=== PATIENT | male | born 1965 | race Caucasian/White ===

== ENCOUNTER → 2022-03-01 18:35 | Outpatient (CLI) | payer SELFPAY ==
--- NOTE | 2022-03-01 | DI.RAD_ITS ---
Exam(s) XR ELBOW LT COMPLETE EXAM: XR ELBOW LT COMPLETE CLINICAL HISTORY: BURSITIS, SWELLING AND PAIN - M70.32. TECHNIQUE: 2D digital imaging was performed. COMPARISON: CR RIGHT ELBOW COMPLETE from 12/13/2016 FINDINGS: 3 views There is no evidence of acute fracture nor obvious joint effusion. Radial head and capitellum appear unremarkable. Calcification noted at the insertional aspect of the quadriceps on the posterior aspe ct of the olecranon is again noted but presently is united (previously appeared fractured). However, there is some soft tissue swelling overlying this region in the olecranon bursa. In addition, there are findings at the level of the medial epicondyle consistent with epicondylitis, as previously pres ent. No concerning osseous lesions. There are no calcified loose intra-articular bodies. IMPRESSION: 1. Calcific densities at and adjacent to the outer aspect of the medial distal humeral epicondyle con sistent with epicondylitis. 2. Soft tissue swelling posteriorly at the left non bursa, this overlying what appears to be a healed fracture at the calcific density where the triceps tendon attach is to the posterior olecranon. DATA REPOSITORY: RADIATION DOSE DELIVERED:
== END ==
PROVIDERS: PCP Family Medicine; Visit Provider Nurse Practitioner Family
DX: M25.522 Pain in left elbow (principal); M70.32 Other bursitis of elbow, left elbow; M77.02 Medial epicondylitis, left elbow; M79.89 Other specified soft tissue disorders
CPT/HCPCS: 73080

== ENCOUNTER → 2023-08-21 00:33 | Outpatient (CLI) | payer OTHER, SELFPAY ==
--- NOTE | 2023-08-21 07:30 | DI.MRI_ITS ---
Exam(s) MR UPPER JOINT LT WO EXAM: MR UPPER JOINT LT WO CLINICAL HISTORY: PAIN,MEDIAL EPICONDYLITIS LT ELBOW, M77.02. TECHNIQUE: Multiplanar multisequence MRI was performed. COMPARISON: CR XR ELBOW LT COMPLETE from 03/01/2022 FINDINGS: BONES: There is no fracture or contusion pattern. JOINTS: The articular cartilage is unremarkable. There is a small amount of fluid in the joint space . TENDONS: Common flexors: There is very mild hyperintense signal seen in the common flexor tendon. Common extensors: Mild hyperintense signal is seen within the common extensor tendon. Biceps: Unremarkable. Triceps: Unremarkable. MUSCLES: Unremarkable. MEDIAN NERVE: Unremarkable on this noncontrast examination. ULNAR NERVE: Unremarkable on this noncontrast examination. SOFT TISSUES: Unremarkable. LIGAMENTS: Ulnar collateral: Unremarkable. Radial collateral: There is attenuation of the radial collateral ligament suspicious for tear. OTHER: IMPRESSION: 1. Findings suspicious for partial tear of the radial collateral ligament. 2. Hyperintense signal seen in the common extensor tendon suspicious for partial tear versus tendinos is. 3. Tendinosis of the common flexor tendon. 4. Small amount of fluid in the joint space particularly laterally. DATA REPOSITORY:
== END ==
PROVIDERS: PCP Family Medicine; Visit Provider Student in an Organized Health Care Education/Training Program
DX: M77.02 Medial epicondylitis, left elbow (principal)
CPT/HCPCS: 73221

== ENCOUNTER 2023-12-28 17:36 | Observation (INO) | payer OTHER, SELFPAY ==
[2023-12-28] VITALS (8 sets, daily range): BP systolic 111–142; BP diastolic 68–101; PULSE 59–85; RESP 15–19; TEMP 35.9; O2SAT 95–99
--- NOTE | 2023-12-28 17:45 | DI.RAD_ITS ---
Exam(s) XR FEMUR RT EXAM: XR FEMUR RT CLINICAL HISTORY: R femur pain. TECHNIQUE: 2D digital imaging was performed. AP and lateral views. COMPARISON: No exams were available for comparison FINDINGS: BONES: No acute fracture is present. No bony destructive lesion is seen. JOINTS: Degenerative changes are noted at the knee. The hip joint space is maintained. Alignment of the knee and hip unremarkable. SOFT TISSUE: Normal. IMPRESSION: No acute abnormality. DATA REPOSITORY: RADIATION DOSE DELIVERED:
--- NOTE | 2023-12-28 17:45 | DI.RAD_ITS ---
Exam(s) XR ANKLE LT COMPLETE EXAM: XR ANKLE LT COMPLETE CLINICAL HISTORY: fall from height, L ankle pain TECHNIQUE: 2D digital imaging was performed. Three views. COMPARISON: CR RIGHT ANKLE COMPLETE from 10/10/2013 CR,XR XR FEMUR RT from 12/28/2023 FINDINGS: BONES: A nondisplaced fractures seen through the calcaneus on the lateral view. No bony destructive lesion is seen. JOINTS:The ankle mortise is normally aligned. SOFT TISSUE: Swelling. IMPRESSION: Nondisplaced calcaneal fracture. DATA REPOSITORY: RADIATION DOSE DELIVERED:
--- NOTE | 2023-12-28 17:45 | RT.EKG_ITS ---
APPROVED REPORT Exam: Resting ECG Reason for Exam: fall from height, mid-back pain Patient Location: E HR:90 bpm ECG Measurements Heart Rate 90 AXIS GA 181 P 75 QRSd 87 QRS 68 QT 373 T 57 QTc 456 Conclusion Sinus rhythm...normal P axis, V-rate 60- 99 Physician: no stemi
--- NOTE | 2023-12-28 17:45 | DI.CT_ITS ---
Exam(s) CT CHEST/ABD/PEL W CT THORACIC LUMBAR SPINE REC EXAM: CT CHEST/ABD/PEL W CLINICAL HISTORY: fall from roof ; 14 feet. TECHNIQUE: Imaging Protocol: Axial computed tomography images with coronal and sagittal reformatted images were created and reviewed CONTRAST MATERIAL: Intravenous: Omnipaque 350 Contrast volume:100 ml Oral: no COMPARISON: CT CHEST ABD PELVIS WITH CONTRAST from 11/25/[address] THORACIC LUMBAR SPINE REC from 12/28/2023 FINDINGS: CHEST: Tracheobronchial tree: Patent where visualized. Pulmonary parenchyma: No consolidation or dominant measurable mass. Pleura: No effusion or pneumothorax. Lymph nodes: Within normal limits. Aorta: Thoracic portion non-dilated. Heart: No pericardial effusion. Bones: Old rib fractures. No lytic or blastic lesions.No compression fractures. Degenerative change s in the spine. Prominent endplate osteophytes. Soft tissues: Unremarkable. ABDOMEN and PELVIS: Liver: Fatty infiltration. No measurable mass. Gallbladder and biliary tract: No evidence of stones or wall thickening. No biliary dilatation. Pancreas: Normal density, no abnormal calcifications or inflammatory process. Spleen: Normal. Kidneys: Normal size, contour and axis. No radiodense stones. No obstructive uropathy. No suspicious masses seen. No visible laceration or contusion. Adrenal glands: No masses seen. Aorta: Abdominal portion non-dilated. Lymph nodes: Within normal limits. Soft tissues: Unremarkable. A small amount of hemorrhage is seen in the right retroperitoneum at the level of the upper to mid pe lvis. Bladder: Unremarkable. Bowel: No obstruction or bowel wall thickening. Peritoneal cavity: No ascites. No focal collection. No mesenteric inflammatory response. Bones: Prominent endplate osteophytes. There are nondisplaced fractures through the right sided oste ophytes at the L4 and L5 level. Fractures also seen extending through the anterior osteophytes at L5 . Degenerative disc changes greatest at L5-S1. No surrounding hematoma. Degenerative changes of becky th hips. Reproductive organs: Within normal limits. IMPRESSION: No acute abnormality in the chest. Small amount of right-sided retroperitoneal hemorrhage. No renal laceration or contusion is identifi ed. Fractures through the right-sided osteophytes at L4 and L5. Additional fracture through the anterior portions of the osteophytes at L5. Findings called to ER provider. RADIATION DOSE DELIVERED: Total DLP DATA REPOSITORY: All CT scans at this facility are submitted to the National Radiology Data Registry (NRDR) Dose Index Registry (DIR) with the [employer] ([employer]). RADIATION OPTIMIZATION: All CT scans at this facility use at least one of these dose optimization te chniques: automated exposure control; mA and/or kV adjustment per patient size (includes targeted exa ms where dose is matched to clinical indication); or iterative reconstruction.
--- NOTE | 2023-12-28 17:45 | DI.RAD_ITS ---
Exam(s) XR ELBOW RT COMPLETE EXAM: XR ELBOW RT COMPLETE CLINICAL HISTORY: R elbow pain, fall from height. TECHNIQUE: 2D digital imaging was performed. Three views. COMPARISON: MR MR UPPER JOINT LT WO from 08/21/2023 FINDINGS: BONES: No acute fracture is present. No bony destructive lesion is seen. Prominent spur at the olecr anon. JOINTS: The elbow is normally aligned. No joint effusion is seen. Joint space loose bodies noted. SOFT TISSUE: IV noted. IMPRESSION: No acute abnormality. DATA REPOSITORY: RADIATION DOSE DELIVERED:
--- NOTE | 2023-12-28 17:45 | DI.CT_ITS ---
Exam(s) CT HEAD CERVICAL SPINE WO EXAM: CT HEAD CERVICAL SPINE WO CLINICAL HISTORY: fall from roof, 14 feet. TECHNIQUE: Imaging Protocol: Axial computed tomography images with coronal and sagittal reformatted images were created and reviewed COMPARISON: CT HEAD AND CSPINE W/O CONTRAST from 11/25/2017 FINDINGS: Head CT Ventricles and Extra axial spaces: Normal in size and morphology for the patient's age. Hemorrhage: None. Cerebral parenchyma: No evidence of mass or acute infarct. Midline shift: None. Brainstem/Cerebellum: Normal. Calvarium: Normal. Visualized Paranasal sinuses/Mastoids: Mucous retention at the floors of the maxillary sinuses. Some mucous retention within ethmoid sinuses. Soft tissues: Unremarkable. Cervical Spine CT BONES: Vertebral body heights are maintained. Alignment is normal. There is no evidence of acute frac ture. Degenerative disc changes and facet degenerative changes are seen . SOFT TISSUES: No paraspinal hematoma. The airway appears intact. No pneumothorax is seen at the lung apices. IMPRESSION: Head CT: No acute abnormality. C-spine CT: Degenerative changes, no acute abnormality. RADIATION DOSE DELIVERED: Total DLP DATA REPOSITORY: All CT scans at this facility are submitted to the National Radiology Data Registry (NRDR) Dose Index Registry (DIR) with the [employer] ([employer]). RADIATION OPTIMIZATION: All CT scans at this facility use at least one of these dose optimization te chniques: automated exposure control; mA and/or kV adjustment per patient size (includes targeted exa ms where dose is matched to clinical indication); or iterative reconstruction.
--- NOTE | 2023-12-28 18:00 | ED.GENADUL_ITS ---
Discharge Plan Disposition Patient Disposition: Admit to [facility] Condition: Stable Discharge Details Clinical Impression: Retroperitoneal hemorrhage, Fracture of left calcaneus Admit Date/Time: 12/28/23 21:05 Admit Provider: Alex Alcala Attending Provider: Alex Alcala Primary Care Provider: Peggy Rivero V ED Provider: Alex Stoddard [facility] General Date/Time Provider Initiated Documentation: 12/28/23 17:49 . HPI Narrative: 58 year-old male presents to ED today by POV/wheelchair with a chief complaint of fall from 14 foot roof while working- landing on L ankle, L hip, and butt/back with onset just prior to arrival. Quality described as severe back pain, some nausea, L ankle pain, R femur pain, R elbow pain, no radiation to headstrike, LOC, endorses mild neck pain, denies active bleeding, denies abdominal pain, denies numbness/tingling. Severity is described as 8/10. Palliating factors include nothing specific. Provoking factors include nothing specific. Patient not anticoagulated. Related Data Home Medications Medication Instructions Recorded Confirmed Unknown [No Known Home Meds] 07/10/23 12/28/23 Allergies Allergy/AdvReac Type Severity Reaction Status Date / Time No Known Allergies Allergy Unverified 12/28/23 17:47 General Stated Complaint: Trauma MARIBEL: 2 Review of Systems All systems reviewed & are unremarkable except as noted in HPI and below Exam Narrative Exam Narrative: GENERAL APPEARANCE: Well-nourished, non-toxic, awake and alert, atraumatic, no a cute distress. SKIN: Warm, pink, dry, intact, without rashes/lesions/ulcerations. HEAD: Normocephalic, atraumatic- no Marcos's sign, no periorbital ecchymosis, no scalp hematoma, normal hair distribution for gender/age. EYES: Pupils PERRLA, EOMs intact without nystagmus, normal conjunctiva, no exudates on lids/lashes. ENT: Nares patent, no circumoral cyanosis, no facial swelling, orbits stable NECK: Supple, trachea midline, painless cervical ROM, mild TTP midline cervical C-spine, no crepitus/step-offs. LUNGS/CHEST: Lungs CTA bilaterally- no rhonchi/rales/wheezes diffusely, non- labored respirations, normal A/P diameter, symmetrical expansion, no chest wall deformity, no crepitus, no flail segment, no paradoxical motion HEART (CV/PV): Regular rate and rhythm without murmur, no peripheral edema, no JVD. ABDOMEN: Soft, non-distended, no guarding, no tenderness, no ecchymosis, no Rovsing's. MSK: Normal ROM, no swelling/deformity to bilateral UEs or LEs, moving all extremities without weakness, no cyanosis, spine midline without tenderness, normal curvature. Diffuse vertebral tenderness in the thoracic and lumbar vertebrae without overt crepitus or step-offs, no dependent edema or ecchymosis, hips stable without crepitus, tenderness and ecchymosis to the left ankle, mild tenderness over the stable right femur midshaft, very minor abrasion without crepitus and full range of motion to the right elbow. NEURO: Mental Status AAOx4 - alert to person, place, time, events No facial droop, no forehead involvement. Motor: No focal weakness - strength 5/5 in bilateral UEs and LEs, proximal and distal, symmetric. Sensory: sensation intact to light touch globally. Gait normal: patient ambulated without ataxia into ED room. PSYCH: euthymic, cooperative, pleasant, appropriate speech Course Vital Signs Vital signs: Vital Signs Pulse 83 12/28/23 17:41 Respiratory Rate 18 12/28/23 17:41 Blood Pressure 142/101 H 12/28/23 17:41 Pulse Oximetry 99 12/28/23 17:41 Pulse 83 12/28/23 17:41 Respiratory Rate 18 12/28/23 17:41 Respiratory Effort Normal 12/28/23 17:49 Respiratory Depth Normal 12/28/23 17:49 Respiratory Pattern Irregular 12/28/23 17:49 Blood Pressure 142/101 H 12/28/23 17:41 Pulse Oximetry 99 12/28/23 17:41 Pain Level 9 12/28/23 17:49 Medical Decision Making This dictation utilizes [id number] dictation software and may contain unedited grammatical errors. 58 y/o M presents to ED today with a chief complaint of fall from 14 foot roof, pain to back, neck, L ankle, R elbow, R femur, denies abdominal pain, denies headstrike, denies numbness/tingling, denies cough/shortness of breath, denies rib pain. Patients' medical history: Alcoholism, history of smoking. 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 Pertinent exam findings / vital signs include chest wall stable without crepitus, lungs CTA, mild tenderness to the neck without crepitus, no signs of head injury on exam, neurovascularly intact in bilateral lower extremities, pelvis stable, benign abdomen, left ankle tenderness and ecchymosis. Differential / pathologies of concern include fracture, internal bleeding/solid organ injury, hematoma/hemorrhage, intracranial bleeding, spinal cord or column injury. Diagnostic studies of: -Eisenberg-Scan - (CT Head, C-T-L Spine, Chest/Abd/Pelvis), XR L Ankle, XR R Femur, XR R Elbow, CBC, CMP, Type & Screen, PT/PTT, Lactate, Lipase, UA. -CBC WBCs 13.18, HgB 13.7 -Lactate 2.9 initially -Coags WNL -serial trop negative -EKG NSR, no signs of ischemia -lipase WNL -CTs show no vertebral injury, no solid organ injury, a small R sided retroperitoneal hemorrhage without ureter involvement, non-displaced fx to L calcaneus, no fracture at hips, femur, elbow Interventions of: -500mL bolus IVF, 1g APAP, 15mg ketorlac, 4mg zofran x2 q3hr, 1mg hydromorphone- consult Trauma Surgery Dr. Alcala. ED Course/Assessment/Plan: 58-year-old male suffered a 14 foot fall from roof, diagnosis of a small right- sided retroperitoneal hemorrhage that does not appear to involve solid organ injury or ureter involvement, he has a fracture of the calcaneus which is nondisplaced. I consulted with trauma surgery Dr. Alcala who recommends observation. Patient stable, nausea and some vomiting in department likely due to hydromorphone. I consulted with orthopedics Dr. King who recommends a posterior splint which I placed him in with extensive padding around the heel and elevated the leg and recommended nonweightbearing whatsoever. Patient likely needs repeat imaging in the morning and is admitted to [facility] around 2200 hrs. Disposition of Retroperitoneal Hemorrhage, Fracture of Left Calcaneus. Patient verbalized understanding of the plan and return to ED criteria and engaged in shared decision making. Medical Records Medical records reviewed: Yes I reviewed the patient's medical records. Imaging Data Radiologic Study: Attestation: I personally reviewed and interpreted this imaging study as follows: Imaging: CT Scan Radiologist's impression: Exam: CT Head Without Contrast Exam date and time: 12/28/2023 6:50 PM Age: 58 years old Clinical indication: Pain and injury or trauma; Fall; Blunt trauma (contusions or hematomas); Neck pain; Patient HX: Neck, back pain, nausea; Additional info: Fall from roof, 14 feet TECHNIQUE: Imaging protocol: Computed tomography of the head without contrast. COMPARISON: CT HEAD AND CSPINE W/O CONTRAST 11/25/2017 1:40 PM FINDINGS: Brain: No intracranial hemorrhage or extra-axial fluid collection. No evidence of mass effect or midline shift. Vergara-white matter differentiation is intact. Cerebral ventricles: No ventriculomegaly. Paranasal sinuses: Moderate mucosal thickening of the maxillary sinuses. Mastoid air cells: Unremarkable. Bones/joints: No acute calvarial fracture. Soft tissues: Scalp soft tissues are unremarkable. IMPRESSION: No acute intracranial pathology. PROCEDURE INFORMATION: Exam: CT Cervical Spine Without Contrast Exam date and time: 12/28/2023 6:50 PM Age: 58 years old Clinical indication: Pain and injury or trauma; Fall; Blunt trauma (contusions or hematomas); Neck pain; Patient HX: Neck, back pain, nausea; Additional info: Fall from roof, 14 feet TECHNIQUE: Imaging protocol: Computed tomography of the cervical spine without contrast. COMPARISON: CT HEAD AND CSPINE W/O CONTRAST 11/25/2017 1:40 PM FINDINGS: Bones/joints: Vertebral body heights are maintained. No locked or perched facets. Multilevel facet arthropathy. No acute cervical spine fracture. The dens is intact. Atlanto-axial intervals are normal. Multilevel degenerative changes with intervertebral disc height loss and osteophyte formation, with multilevel areas of mild canal stenosis. Lungs: Lung apices are clear. Soft tissues: Unremarkable. IMPRESSION: No acute cervical spine fracture. Dictated and Authenticated by: Kris Campos MD. Ordering:BERKLEY Johnson MD Radiologic Study #2: Attestation: I personally reviewed and interpreted this imaging study as follows: Imaging: CT Scan Radiologist's impression: Exam(s) Addendum created by Esthela Cerna MD on 12/28/2023 7:47:39 PM EDT: I discussed case findings with ALEX STODDARD 12/28/2023 7:46 PM EDT. Initial report created on 12/28/2023 7:44:00 PM EDT: PROCEDURE INFORMATION: Exam: CT Chest With Contrast; Diagnostic Exam date and time: 12/28/2023 6:58 PM Age: 58 years old Clinical indication: Injury or trauma; Fall; Bleeding/hemorrhage; Lower; Blunt trauma (contusions or hematomas); Injury date: Today; Injury details: Mid back and rib pain; Additional info: Fall from roof, 14 feet TECHNIQUE: Imaging protocol: Diagnostic computed tomography of the chest with contrast. Contrast material: OMNIPAQUE 350; Contrast volume: 100 ml; Contrast route: INTRAVENOUS (IV); COMPARISON: CT CHEST ABD PELVIS WITH CONTRAST 11/25/2017 1:52 PM FINDINGS: Lungs: There is debris in the right mainstem bronchus. Pleural spaces: Unremarkable. No pneumothorax. No pleural effusion. Heart: Unremarkable. No cardiomegaly. No pericardial effusion. Lymph nodes: Unremarkable. No enlarged lymph nodes. Vasculature: Unremarkable. No aortic aneurysm. Bones/joints: Unremarkable. No acute fracture. Soft tissues: Unremarkable. IMPRESSION: No significant, acute posttraumatic abnormality noted in the chest. PROCEDURE INFORMATION: Exam: CT Abdomen And Pelvis With Contrast Exam date and time: 12/28/2023 6:58 PM Age: 58 years old Clinical indication: Injury or trauma; Fall; Bleeding/hemorrhage; Lower; Blunt trauma (contusions or hematomas); Injury date: Today; Injury details: Mid back and rib pain; Additional info: Fall from roof, 14 feet TECHNIQUE: Imaging protocol: Computed tomography of the abdomen and pelvis with contrast. Contrast material: OMNIPAQUE 350; Contrast volume: 100 ml; Contrast route: INTRAVENOUS (IV); COMPARISON: CT CHEST ABD PELVIS WITH CONTRAST 11/25/2017 1:52 PM FINDINGS: Liver: Fatty, enlarged liver. Gallbladder and bile ducts: Normal. No calcified stones. No ductal dilation. Pancreas: Normal. No ductal dilation. Spleen: Splenic calcifications consistent with old granulomatous change. Adrenal glands: Normal. No mass. Kidneys and ureters: See Retroperitoneal space finding. Stomach and bowel: Unremarkable. No obstruction. No mucosal thickening. Appendix: No evidence of appendicitis. Intraperitoneal space: Unremarkable. No free air. No significant fluid collection. Retroperitoneal space: There is abnormal attenuation noted in the right retroperitoneum, posterior pararenal space below the renal level series 8, images [id number], presumed hemorrhage. The area of involvement measures no greater than 5 mm in thickness and approximately 4 cm in length. Vasculature: Unremarkable. No abdominal aortic aneurysm. Lymph nodes: Unremarkable. No enlarged lymph nodes. Urinary bladder: Unremarkable as visualized. Reproductive: Unremarkable as visualized. Bones/joints: Mild to moderate lumbar spondylosis. No evidence for fracture. Soft tissues: Unremarkable. IMPRESSION: Presumed minimal right retroperitoneal hemorrhage. No definite solid organ injury. Pending the patient's clinical course, repeat imaging in 24 hours may be helpful to characterize degree of hemorrhage. Dictated and Authenticated by: Esthela Cerna MD. Ordering:BERKLEY Johnson MD Radiologic Study #3: Attestation: I personally reviewed and interpreted this imaging study as follows: Imaging: X-Ray Radiologist's impression: Exam: XR Right Femur Exam date and time: 12/28/2023 7:09 PM Age: 58 years old Clinical indication: Pain and injury or trauma; Fall; Blunt trauma; Thigh or upper leg; Right; Additional info: Fall from roof, 14 feet TECHNIQUE: Imaging protocol: Radiologic exam of the right femur. Views: 2 views. COMPARISON: CT CHEST/ABD/PEL W 12/28/2023 6:58 PM FINDINGS: Bones/joints: Unremarkable. No acute fracture. Soft tissues: Unremarkable. IMPRESSION: No evidence for fracture. Dictated and Authenticated by: Esthela Cerna MD. Ordering:BERKLEY Johnson MD Radiologic Study #4: Attestation: I personally reviewed and interpreted this imaging study as follows: Imaging: X-Ray Radiologist's impression: Exam: XR Left Ankle Exam date and time: 12/28/2023 7:11 PM Age: 58 years old Clinical indication: Pain and injury or trauma; Fall; Blunt trauma; Ankle; Left; Additional info: Fall from roof, 14 feet TECHNIQUE: Imaging protocol: Radiologic exam of the left ankle. Views: 3 or more views. COMPARISON: No relevant prior studies available. FINDINGS: Bones/joints: There is a nondisplaced calcaneal fracture. The medial and lateral malleoli appear intact. There may be a small ankle joint effusion. Soft tissues: Normal. IMPRESSION: Nondisplaced calcaneal fracture. Dictated and Authenticated by: Esthela Cerna MD. Ordering:BERKLEY Johnson MD Radiologic Study #5: Attestation: I personally reviewed and interpreted this imaging study as follows: Imaging: X-Ray Radiologist's impression: Exam: XR Right Elbow Exam date and time: 12/28/2023 7:21 PM Age: 58 years old Clinical indication: Pain and injury or trauma; Fall; Blunt trauma (contusions or hematomas); Elbow; Right; Additional info: Fall from roof, 14 feet TECHNIQUE: Imaging protocol: Radiologic exam of the right elbow. Views: 3 or more views. COMPARISON: No relevant prior studies available. FINDINGS: Bones/joints: Hypertrophic spurring noted of the olecranon process. There may be small adjacent loose bodies noted at the lateral epicondylar level. No fracture. No evidence for joint effusion. Soft tissues: Normal. IMPRESSION: No evidence for fracture. Dictated and Authenticated by: Esthela Cerna MD. Ordering:BERKLEY Johnson MD Lab Data Lab results reviewed: Yes I reviewed the patient's lab results. Labs: Laboratory Tests Range/Units 12/28/23 18:04 WBC (4.4-10.8) 10^3/uL 13.18 H RBC (4.36-5.78) 10^6/uL 4.18 L Hgb (13.5-17.5) g/dL 13.7 Hct (40.0-50.0) % 38.8 L MCV (80-95) fL 93 MCH (27.0-33.0) pg 32.8 MCHC (32.0-36.0) % 35.3 RDW (11.8-14.1) % 14.6 H Plt Count (130-400) 10^3/uL 244 MPV (8.0-11.0) fL 9.5 Immature Gran % 0.5 Neutrophils % 88.0 Lymphocytes % 4.9 Monocytes % 6.0 Eosinophils % 0.2 Basophils % 0.4 Nucleated RBC % (0.0-0.3) % 0.0 Absolute Neutrophils (1.2-6.7) 10^3/uL 11.60 H Absolute Lymphocytes (1.2-3.4) 10^3/uL 0.65 L Absolute Monocytes (0.1-0.8) 10^3/uL 0.79 Absolute Eosinophils (0.0-0.7) 10^3/uL 0.03 Absolute Basophils (0.0-0.2) 10^3/uL 0.05 PT (9.1-11.1) sec 10.4 INR (0.9-1.1) 1.0 APTT (23.6-32.8) sec 24.6 VBG Lactate (0.6-1.4) mmol/L 2.3 H* Sodium (136-145) mmol/L 136 Potassium (3.5-5.1) mmol/L 3.7 Chloride (98-107) mmol/L 99 Carbon Dioxide (21.0-32.0) mmol/L 22.7 Anion Gap (3-11) mmol/L 14.3 H BUN (7-18) mg/dL 15 Creatinine (0.70-1.30) mg/dL 1.1 Est GFR (CKD-EPI 2020) (mL/min/1.73m2) 78.30 Glucose (74-106) mg/dL 99 Calcium (8.5-10.1) mg/dL 8.4 L Magnesium (1.8-2.4) mg/dL 2.0 Total Bilirubin (0.2-1.0) mg/dL 0.4 AST (15-37) U/L 34 ALT (16-63) U/L 28 Alkaline Phosphatase (46-116) U/L 107 Troponin I (< or =60) ng/L < 50 Total Protein (6.4-8.2) g/dL 7.8 Albumin (3.4-5.0) g/dL 3.4 Lipase (16-77) U/L 30 Quality:SDOH Health Related Social Needs: No Data to Display PFSH All Active Problems Fracture of left calcaneus (Acute 12/28/23) Retroperitoneal hemorrhage (Acute) Cubital tunnel syndrome on left (Acute) Medial epicondylitis, left elbow (Acute) Olecranon bursitis of left elbow (Acute) Left lateral epicondylitis (Acute) Smoker (Acute) Alcoholism (Acute) Anxiety disorder (Acute) Systolic murmur (Acute) Medical History History of closed head injury Eczema ADD (attention deficit disorder) Low back pain Gout Social History Smoking/Tobacco Use Status: Current every day Tobacco Type: cigarettes Smoking risk assessment performed?: Yes Alcohol Intake: current Alcohol Intake frequency: 3 or more drinks per day Alcohol type: beer Drug use: Never Substance use type: does not use Current gender identity: male Do you feel safe in your relationship?: No PAWSS Have you Been Recently Intoxicated or Drunk Within the Last 30 days?: No Have you Ever Experienced Previous Episodes of Alcohol Withdrawal?: No Have you ever Experienced Withdrawal Seizures?: No Have you ever Experienced Delirium Tremens(DT)s?: No Have you ever undergone Alcohol Rehabilitation Treatment (i.e, inpt ot outpatient treatment programs)?: Yes Have you ever Experienced Blackouts?: No Have you ever Combined Alcohol with other Downers within the last 90 days?: No Have you ever Combined Alcohol with any other Substance of Abuse during the last 90 days?: No Result: 1
[2023-12-28 18:15] LABS: Abs Immature Grans 0.07 10^3/uL (0.0-0.06); Absolute Basophil Count 0.05 10^3/uL (0.0-0.2); Absolute Lymphocyte Count 0.65 10^3/uL (1.2-3.4); Absolute Monocyte Count 0.79 10^3/uL (0.1-0.8); Basophils % 0.4; Eosinophils % 0.2; HCT 38.8 % (40.0-50.0); HGB 13.7 g/dL (13.5-17.5); Immature Grans % 0.5; Lymphocytes % 4.9; MCH 32.8 pg (27.0-33.0); MCHC 35.3 % (32.0-36.0); MCV 93 fL (80-95); MPV 9.5 fL (8.0-11.0); Platelet Count 244 10^3/uL (130-400); RBC 4.18 10^6/uL (4.36-5.78); RDW 14.6 % (11.8-14.1); RDW-SD 50.1 fL; WBC 13.18 10^3/uL (4.4-10.8)
[2023-12-28 18:17] LABS: Lactate 2.3 mmol/L (0.6-1.4)
[2023-12-28 18:22] LABS: Absolute Eosinophil Count 0.03 10^3/uL (0.0-0.7)
[2023-12-28] MEDS: ACETAMINOPHEN 1,000 MG/100 ML BTL 400 MG IVPB (18:35)
[2023-12-28] MEDS: fentaNYL 100 MCG/2 ML VIAL 50 MCG IVP (18:36)
[2023-12-28] MEDS: Ketorolac 15 MG/ML VIAL IVP (18:36)
[2023-12-28 18:37] LABS: PTT Activated 24.6 sec (23.6-32.8); Prothrombin Time 10.4 sec (9.1-11.1)
[2023-12-28] MEDS: Normal Saline 500 ML IV (18:37)
[2023-12-28] MEDS: Normal Saline Flush 10 ML SYR IVP (18:46)
[2023-12-28] MEDS: Normal Saline - Diluent 50 ML VIAL IJ (18:46)
[2023-12-28 18:47] LABS: ALT 28 U/L (16-63); AST 34 U/L (15-37); Albumin 3.4 g/dL (3.4-5.0); Alkaline Phosphatase 107 U/L (46-116); Anion Gap 14.3 mmol/L (3-11); BUN 15 mg/dL (7-18); Bilirubin, Total 0.4 mg/dL (0.2-1.0); CO2 22.7 mmol/L (21.0-32.0); CREATININE 1.1 mg/dL (0.70-1.30); Calcium 8.4 mg/dL (8.5-10.1); Chloride 99 mmol/L (98-107); Glucose 99 mg/dL (74-106); Lipase 30 U/L (16-77); Potassium 3.7 mmol/L (3.5-5.1); Sodium 136 mmol/L (136-145); Total Protein 7.8 g/dL (6.4-8.2); Troponin I < 50 ng/L (< or =60)
[2023-12-28] MEDS: Omnipaque 350 MG/ML 100 ML BTL IJ (18:47)
--- NOTE | 2023-12-28 19:11 | DI.VRAD_ITS ---
PROCEDURE INFORMATION: Exam: CT Head Without Contrast Exam date and time: 12/28/2023 6:50 PM Age: 58 years old Clinical indication: Pain and injury or trauma; Fall; Blunt trauma (contusions or hematomas); Neck pain; Patient HX: Neck, back pain, nausea; Additional info: Fall from roof, 14 feet TECHNIQUE: Imaging protocol: Computed tomography of the head without contrast. COMPARISON: CT HEAD AND CSPINE W/O CONTRAST 11/25/2017 1:40 PM FINDINGS: Brain: No intracranial hemorrhage or extra-axial fluid collection. No evidence of mass effect or midline shift. Vergara-white matter differentiation is intact. Cerebral ventricles: No ventriculomegaly. Paranasal sinuses: Moderate mucosal thickening of the maxillary sinuses. Mastoid air cells: Unremarkable. Bones/joints: No acute calvarial fracture. Soft tissues: Scalp soft tissues are unremarkable. IMPRESSION: No acute intracranial pathology. PROCEDURE INFORMATION: Exam: CT Cervical Spine Without Contrast Exam date and time: 12/28/2023 6:50 PM Age: 58 years old Clinical indication: Pain and injury or trauma; Fall; Blunt trauma (contusions or hematomas); Neck pain; Patient HX: Neck, back pain, nausea; Additional info: Fall from roof, 14 feet TECHNIQUE: Imaging protocol: Computed tomography of the cervical spine without contrast. COMPARISON: CT HEAD AND CSPINE W/O CONTRAST 11/25/2017 1:40 PM FINDINGS: Bones/joints: Vertebral body heights are maintained. No locked or perched facets. Multilevel facet arthropathy. No acute cervical spine fracture. The dens is intact. Atlanto-axial intervals are normal. Multilevel degenerative changes with intervertebral disc height loss and osteophyte formation, with multilevel areas of mild canal stenosis. Lungs: Lung apices are clear. Soft tissues: Unremarkable. IMPRESSION: No acute cervical spine fracture. Dictated and Authenticated by: Kris Campos MD. Ordering:BERKLEY Johnson MD
--- NOTE | 2023-12-28 19:44 | DI.VRAD_ITS ---
Addendum created by Esthela Cerna MD on 12/28/2023 7:47:39 PM EDT: I discussed case findings with ZIGGY STODDARD 12/28/2023 7:46 PM EDT. Initial report created on 12/28/2023 7:44:00 PM EDT: PROCEDURE INFORMATION: Exam: CT Chest With Contrast; Diagnostic Exam date and time: 12/28/2023 6:58 PM Age: 58 years old Clinical indication: Injury or trauma; Fall; Bleeding/hemorrhage; Lower; Blunt trauma (contusions or hematomas); Injury date: Today; Injury details: Mid back and rib pain; Additional info: Fall from roof, 14 feet TECHNIQUE: Imaging protocol: Diagnostic computed tomography of the chest with contrast. Contrast material: OMNIPAQUE 350; Contrast volume: 100 ml; Contrast route: INTRAVENOUS (IV); COMPARISON: CT CHEST ABD PELVIS WITH CONTRAST 11/25/2017 1:52 PM FINDINGS: Lungs: There is debris in the right mainstem bronchus. Pleural spaces: Unremarkable. No pneumothorax. No pleural effusion. Heart: Unremarkable. No cardiomegaly. No pericardial effusion. Lymph nodes: Unremarkable. No enlarged lymph nodes. Vasculature: Unremarkable. No aortic aneurysm. Bones/joints: Unremarkable. No acute fracture. Soft tissues: Unremarkable. IMPRESSION: No significant, acute posttraumatic abnormality noted in the chest. PROCEDURE INFORMATION: Exam: CT Abdomen And Pelvis With Contrast Exam date and time: 12/28/2023 6:58 PM Age: 58 years old Clinical indication: Injury or trauma; Fall; Bleeding/hemorrhage; Lower; Blunt trauma (contusions or hematomas); Injury date: Today; Injury details: Mid back and rib pain; Additional info: Fall from roof, 14 feet TECHNIQUE: Imaging protocol: Computed tomography of the abdomen and pelvis with contrast. Contrast material: OMNIPAQUE 350; Contrast volume: 100 ml; Contrast route: INTRAVENOUS (IV); COMPARISON: CT CHEST ABD PELVIS WITH CONTRAST 11/25/2017 1:52 PM FINDINGS: Liver: Fatty, enlarged liver. Gallbladder and bile ducts: Normal. No calcified stones. No ductal dilation. Pancreas: Normal. No ductal dilation. Spleen: Splenic calcifications consistent with old granulomatous change. Adrenal glands: Normal. No mass. Kidneys and ureters: See Retroperitoneal space finding. Stomach and bowel: Unremarkable. No obstruction. No mucosal thickening. Appendix: No evidence of appendicitis. Intraperitoneal space: Unremarkable. No free air. No significant fluid collection. Retroperitoneal space: There is abnormal attenuation noted in the right retroperitoneum, posterior pararenal space below the renal level series 8, images [id number], presumed hemorrhage. The area of involvement measures no greater than 5 mm in thickness and approximately 4 cm in length. Vasculature: Unremarkable. No abdominal aortic aneurysm. Lymph nodes: Unremarkable. No enlarged lymph nodes. Urinary bladder: Unremarkable as visualized. Reproductive: Unremarkable as visualized. Bones/joints: Mild to moderate lumbar spondylosis. No evidence for fracture. Soft tissues: Unremarkable. IMPRESSION: Presumed minimal right retroperitoneal hemorrhage. No definite solid organ injury. Pending the patient's clinical course, repeat imaging in 24 hours may be helpful to characterize degree of hemorrhage. Dictated and Authenticated by: Esthela Cerna MD. Ordering:BERKLEY Johnson MD
--- NOTE | 2023-12-28 19:45 | DI.VRAD_ITS ---
PROCEDURE INFORMATION: Exam: XR Right Femur Exam date and time: 12/28/2023 7:09 PM Age: 58 years old Clinical indication: Pain and injury or trauma; Fall; Blunt trauma; Thigh or upper leg; Right; Additional info: Fall from roof, 14 feet TECHNIQUE: Imaging protocol: Radiologic exam of the right femur. Views: 2 views. COMPARISON: CT CHEST/ABD/PEL W 12/28/2023 6:58 PM FINDINGS: Bones/joints: Unremarkable. No acute fracture. Soft tissues: Unremarkable. IMPRESSION: No evidence for fracture. Dictated and Authenticated by: Esthela Cerna MD. Ordering:BERKLEY Johnson MD
--- NOTE | 2023-12-28 19:48 | DI.VRAD_ITS ---
PROCEDURE INFORMATION: Exam: XR Left Ankle Exam date and time: 12/28/2023 7:11 PM Age: 58 years old Clinical indication: Pain and injury or trauma; Fall; Blunt trauma; Ankle; Left; Additional info: Fall from roof, 14 feet TECHNIQUE: Imaging protocol: Radiologic exam of the left ankle. Views: 3 or more views. COMPARISON: No relevant prior studies available. FINDINGS: Bones/joints: There is a nondisplaced calcaneal fracture. The medial and lateral malleoli appear intact. There may be a small ankle joint effusion. Soft tissues: Normal. IMPRESSION: Nondisplaced calcaneal fracture. Dictated and Authenticated by: Esthela Cerna MD. Ordering:BERKLEY Johnson MD
--- NOTE | 2023-12-28 19:50 | DI.VRAD_ITS ---
PROCEDURE INFORMATION: Exam: XR Right Elbow Exam date and time: 12/28/2023 7:21 PM Age: 58 years old Clinical indication: Pain and injury or trauma; Fall; Blunt trauma (contusions or hematomas); Elbow; Right; Additional info: Fall from roof, 14 feet TECHNIQUE: Imaging protocol: Radiologic exam of the right elbow. Views: 3 or more views. COMPARISON: No relevant prior studies available. FINDINGS: Bones/joints: Hypertrophic spurring noted of the olecranon process. There may be small adjacent loose bodies noted at the lateral epicondylar level. No fracture. No evidence for joint effusion. Soft tissues: Normal. IMPRESSION: No evidence for fracture. Dictated and Authenticated by: Esthela Cerna MD. Ordering:BERKLEY Johnson MD
[2023-12-28] MEDS: HYDROmorphone 2 MG/ML SYR 1 MG IVP (19:51)
--- NOTE | 2023-12-28 20:01 | DI.VRAD_ITS ---
PROCEDURE INFORMATION: Exam: CT Thoracic Spine Without Contrast Exam date and time: 12/28/2023 6:58 PM Age: 58 years old Clinical indication: Injury or trauma; Blunt trauma (contusions or hematomas); Injury details: Fall from roof, 14 feet TECHNIQUE: Imaging protocol: Computed tomography of the thoracic spine without contrast. COMPARISON: SC LUMBAR AND THORACIC SP RECONS 11/25/2017 2:48 PM FINDINGS: Bones/joints: There are some old bilateral rib fractures noted. No evidence for acute fracture. Moderate spondylosis. Vertebral body height is well preserved. No stenosis. Soft tissues: Unremarkable. IMPRESSION: No evidence for acute posttraumatic abnormality. PROCEDURE INFORMATION: Exam: CT Lumbar Spine Without Contrast Exam date and time: 12/28/2023 6:58 PM Age: 58 years old Clinical indication: Injury or trauma; Blunt trauma (contusions or hematomas); Injury details: Fall from roof, 14 feet TECHNIQUE: Imaging protocol: Computed tomography of the lumbar spine without contrast. COMPARISON: SC LUMBAR AND THORACIC SP RECONS 11/25/2017 2:48 PM FINDINGS: Bones/joints: Moderate lumbar spondylosis. Vertebral body height well preserved. No evidence for fracture. Soft tissues: Unremarkable. Other findings: Right-sided retroperitoneal hemorrhage is partially visible. See separate abdomen pelvis report. IMPRESSION: No evidence for acute posttraumatic abnormality. Dictated and Authenticated by: Esthela Cerna MD. Ordering:BERKLEY Johnson MD
[2023-12-28] MEDS: Ondansetron 4 MG/2 ML VIAL IVP ×2 (20:02→21:31)
--- NOTE | 2023-12-28 20:57 | HPE_ITS ---
Date of service: 12/28/23 Time of Service: 20:57 Assessment and Plan Assessment and plan (1) Retroperitoneal hemorrhage: Status: Acute Assessment and plan: I was able to review the CT scan myself, I agree that there is a trace amount of retroperitoneal hematoma mostly on the right side. In the absence of coagulopathies, or significant associated fracture, this should stop on its own. He does have some microscopic hematuria, so I suppose it is possible that this is a blunt ureteral injury as well, although that would be extremely unlikely. Regardless, I think the early management of the would still be the same with observational therapies and reassessment over the next 24 hours. While admitted to the hospital at this point and repeat some blood work tomorrow. He will also need an orthopedics consult for the left calcaneal fracture. History of Present Illness History of Present Illness Chief Complaint: Left ankle pain after fall N arrative: David is 58 years old. He works as a computer assembler. Around 3 PM today, he was up all roof about 14 feet off of ground level. He fell from that height straight down onto pavement. Seems like he probably landed on his left foot. He did not lose consciousness. He left work and went home for a few hours, applying some ice to his ankle. The pain increased through the afternoon, and he came to the emergency department to be evaluated. Hemodynamics are normal. Labs are normal with the exception of an elevated lactate. He underwent CT scans of the head neck chest abdomen and pelvis, as well as x-rays of the left ankle and right elbow. He was found to have a trace amount of fluid in the right retroperitoneal space, essentially between the iliopsoas and the right ureter. Review of Systems Constitutional Constitutional: Reports body ache(s) (After fall) Eyes Eyes: Reports system reviewed and no additional complaints, except as documented ENT Ears, Nose, Mouth, and Throat: Reports system reviewed and no additional complaints, except as documented Cardiovascular Cardiovascular: Denies chest pain and Denies dyspnea Respiratory Respiratory: Denies chest congestion, Denies cough and Denies dyspnea Gastrointestinal Gastrointestinal: Denies abdominal pain Genitourinary Genitourinary: Reports system reviewed and no additional complaints, except as documented Musculoskeletal Musculoskeletal: Reports back pain (Acute and chronic) and Reports arthralgias (Left ankle) Neurologic Neurologic: Reports system reviewed and no additional complaints, except as documented Psychiatric Psychiatric: Reports system reviewed and no additional complaints, except as documented Endocrine Endocrine: Reports system reviewed and no additional complaints, except as documented Hematologic/Lymphatic Hematologic/Lymphatic: Denies easy bleeding and Denies easy bruising PFSH All Active Problems Fracture of left calcaneus (Acute 12/28/23) Retroperitoneal hemorrhage (Acute) Cubital tunnel syndrome on left (Acute) Medial epicondylitis, left elbow (Acute) Olecranon bursitis of left elbow (Acute) Left lateral epicondylitis (Acute) Smoker (Acute) Alcoholism (Acute) Anxiety disorder (Acute) Systolic murmur (Acute) Medical History History of closed head injury Eczema ADD (attention deficit disorder) Low back pain Gout Social History Smoking/Tobacco Use Status: Current every day Tobacco Type: cigarettes Smoking risk assessment performed?: Yes Alcohol Intake: current Alcohol Intake frequency: 3 or more drinks per day Alcohol type: beer Drug use: Never Substance use type: does not use Current gender identity: male Do you feel safe in your relationship?: No Meds Allergies and Home Medications Allergies Allergy/AdvReac Type Severity Reaction Status Date / Time No Known Allergies Allergy Unverified 12/28/23 17:47 Home Medications Medication Instructions Recorded Confirmed Type Unknown [No Known Home Meds] 07/10/23 12/28/23 History Exam Const General: cooperative, comfortable and no acute distress Orientation: alert, awake and oriented x3 HENMT Head: normal to inspection Neck Neck: normal visual inspection, full ROM, no lymphadenopathy, trachea midline and nontender Chest Chest: normal inspection of the chest Resp Effort & Inspection: normal respiratory effort Auscultation: clear to auscultation bilaterally Cardio Rate: regular rate Rhythm: regular rhythm Heart Sounds: S1 normal and S2 normal GI Inspection: normal to inspection, no edema and non-distended Palpation: soft, no guarding, no hernias and nontender Back/Spine/Pelvis Cervical Spine: normal cervical lordosis and No pain with cervical ROM Thoracic/Lumbar Spine: thoracic and lumbar spine normal to inspection Pelvis: pain with anterior-posterior compression and pain with lateral compression Skin Other: Excoriated rashes on both feet Extrem Left lower extremity: ankle Details: tenderness, swelling and ecchymosis Results Labs 12/28/23 18:04 12/28/23 18:04 Labs: Laboratory Results - last 24 hr 12/28/23 18:04 WBC 13.18 H RBC 4.18 L Hgb 13.7 Hct 38.8 L MCV 93 MCH 32.8 MCHC 35.3 RDW 14.6 H Plt Count 244 MPV 9.5 Immature Gran % 0.5 Neutrophils % 88.0 Lymphocytes % 4.9 Monocytes % 6.0 Eosinophils % 0.2 Basophils % 0.4 Nucleated RBC % 0.0 Absolute Neutrophils 11.60 H Absolute Lymphocytes 0.65 L Absolute Monocytes 0.79 Absolute Eosinophils 0.03 Absolute Basophils 0.05 PT 10.4 INR 1.0 APTT 24.6 VBG Lactate 2.3 H* Sodium 136 Potassium 3.7 Chloride 99 Carbon Dioxide 22.7 Anion Gap 14.3 H BUN 15 Creatinine 1.1 Est GFR (CKD-EPI 2020) 78.30 Glucose 99 Calcium 8.4 L Magnesium 2.0 Total Bilirubin 0.4 AST 34 ALT 28 Alkaline Phosphatase 107 Troponin I < 50 Total Protein 7.8 Albumin 3.4 Lipase 30 Last Vital Signs Pulse 59 L 12/28/23 20:00 Resp 17 12/28/23 20:01 BP 111/68 12/28/23 20:00 Pulse Ox 98 12/28/23 20:01 PAWSS Have you Been Recently Intoxicated or Drunk Within the Last 30 days?: No Have you Ever Experienced Previous Episodes of Alcohol Withdrawal?: No Have you ever Experienced Withdrawal Seizures?: No Have you ever Experienced Delirium Tremens(DT)s?: No Have you ever undergone Alcohol Rehabilitation Treatment (i.e, inpt ot outpatient treatment programs)?: Yes Have you ever Experienced Blackouts?: No Have you ever Combined Alcohol with other Downers within the last 90 days?: No Have you ever Combined Alcohol with any other Substance of Abuse during the last 90 days?: No Result: 1 Time Spent Time spent with Patient: 40-54 minutes Time was spent: preparing to see the patient(eg.review tests), ordering medications,tests, procedures, indepentently interpreting results and counseling the patient
--- NOTE | 2023-12-28 21:03 | W.ORTHOCONSU ---
Date of service: 12/29/23 Time of Service: 07:30 Assessment and Plan Assessment and plan (1) Fracture of left calcaneus: Status: Acute Assessment and plan: 58 year old male fall from height with Left minimally displaced calcaneus fracture Patient presented to the ER yesterday, admitted to the surgical services after falling 14 feet from a ladder with a retroperitoneal hemorrhage. Orthopedic consultation requested. The patient was placed into a padded posterior leg splint. Patient reports that at rest his pain is adequately controlled. He does have diffuse or aching throughout his entire back but no midline point tenderness or cervical spine discomfort. He admits to an abrasion to his right elbow but denies any other extremity injury. He is awaiting physical therapy consult with crutches. He does admit to prior left elbow and right ankle surgeries. Upon evaluation this morning, resting comfortably watching TV interacting with his family. Patient appears well, nontoxic, no acute distress. Patient is in an adequately padded posterior leg splint. Patient is able to demonstrate wiggling of all toes. He is also able to demonstrate gentle flexion extension of his left knee. Sensation is intact throughout. Brisk capillary refill. Abrasion noted on the right elbow. Patient does have diffuse lumbar and thoracic discomfort but no midline tenderness. No cervical tenderness. Patient is in an adequately padded posterior leg splint. Will have PT consultation later today to be sure that he can use crutches appropriately and be nonweightbearing. Will follow-up in the orthopedic office with Dr. King in the next 10-14 days We did discuss the importance of elevation and over the counter medications such as Tylenol and Motrin for pain control. Will defer additional pain control to the surgical team whom the patient is admitted. [facility] All Active Problems Fracture of left calcaneus (Acute 12/28/23) Retroperitoneal hemorrhage (Acute) Cubital tunnel syndrome on left (Acute) Medial epicondylitis, left elbow (Acute) Olecranon bursitis of left elbow (Acute) Left lateral epicondylitis (Acute) Smoker (Acute) Alcoholism (Acute) Anxiety disorder (Acute) Systolic murmur (Acute) Medical History History of closed head injury Eczema ADD (attention deficit disorder) Low back pain Gout Social History Smoking/Tobacco Use Status: Current every day Tobacco Type: cigarettes Smoking risk assessment performed?: Yes Alcohol Intake: current Alcohol Intake frequency: 3 or more drinks per day Alcohol type: beer Drug use: Never Substance use type: does not use Housing: apartment Current gender identity: male Do you feel safe in your relationship?: No Results Last Vital Signs Pulse 59 L 12/28/23 20:00 Resp 17 12/28/23 20:01 BP 111/68 12/28/23 20:00 Pulse Ox 98 12/28/23 20:01 Labs 12/29/23 06:14 12/29/23 06:14 Labs: Laboratory Results - last 24 hr 12/28/23 18:04 WBC 13.18 H RBC 4.18 L Hgb 13.7 Hct 38.8 L MCV 93 MCH 32.8 MCHC 35.3 RDW 14.6 H Plt Count 244 MPV 9.5 Immature Gran % 0.5 Neutrophils % 88.0 Lymphocytes % 4.9 Monocytes % 6.0 Eosinophils % 0.2 Basophils % 0.4 Nucleated RBC % 0.0 Absolute Neutrophils 11.60 H Absolute Lymphocytes 0.65 L Absolute Monocytes 0.79 Absolute Eosinophils 0.03 Absolute Basophils 0.05 PT 10.4 INR 1.0 APTT 24.6 VBG Lactate 2.3 H* Sodium 136 Potassium 3.7 Chloride 99 Carbon Dioxide 22.7 Anion Gap 14.3 H BUN 15 Creatinine 1.1 Est GFR (CKD-EPI 2020) 78.30 Glucose 99 Calcium 8.4 L Magnesium 2.0 Total Bilirubin 0.4 AST 34 ALT 28 Alkaline Phosphatase 107 Troponin I < 50 Total Protein 7.8 Albumin 3.4 Lipase 30
[2023-12-28 21:11] LABS: Troponin I < 50 ng/L (< or =60)
[2023-12-28] MEDS: Acetaminophen 500 MG TAB 1000 MG PO (23:48)
[2023-12-28 23:54] LABS: Bilirubin Negative (Negative); Blood Negative (Negative); Clarity Clear (Clear); Glucose Negative (Negative); Ketones Trace mg/dL (Negative); Leukocyte Esterase Negative (Negative); Nitrite Negative (Negative); Urobilinogen 0.2 mg/dL (Up to 0.2)
[2023-12-29] MEDS: traMADol 50 MG TAB PO ×4 (00:50→20:41)
[2023-12-29] MEDS: Acetaminophen 500 MG TAB 1000 MG PO ×4 (06:10→23:19)
[2023-12-29 06:25] LABS: Abs Immature Grans 0.03 10^3/uL (0.0-0.06); Absolute Basophil Count 0.04 10^3/uL (0.0-0.2); Absolute Eosinophil Count 0.07 10^3/uL (0.0-0.7); Absolute Monocyte Count 0.91 10^3/uL (0.1-0.8); Absolute Neutrophil Count 6.15 10^3/uL (1.2-6.7); Basophils % 0.5; Eosinophils % 0.9; HCT 40.3 % (40.0-50.0); HGB 13.6 g/dL (13.5-17.5); Immature Grans % 0.4; Lymphocytes % 7.7; MCH 32.8 pg (27.0-33.0); MCHC 33.7 % (32.0-36.0); MCV 97 fL (80-95); MPV 9.5 fL (8.0-11.0); Monocytes % 11.7; Neutrophils % 78.8; Platelet Count 205 10^3/uL (130-400); RBC 4.15 10^6/uL (4.36-5.78); RDW 14.6 % (11.8-14.1); RDW-SD 53.1 fL
[2023-12-29 06:42] LABS: Amylase 55 U/L (25-115); BUN 14 mg/dL (7-18); CREATININE 1.1 mg/dL (0.70-1.30); Calcium 8.5 mg/dL (8.5-10.1); Chloride 102 mmol/L (98-107); Glucose 108 mg/dL (74-106); Lipase 19 U/L (16-77); Sodium 138 mmol/L (136-145)
[2023-12-29 07:43] VITALS: BP 112/72; PULSE 74; RESP 16; TEMP 36.2; O2SAT 97
[2023-12-29] MEDS: Docusate Sodium 100 MG CAP PO ×3 (07:59→20:35)
[2023-12-29] MEDS: Normal Saline Flush 10 ML SYR IVP ×5 (07:59→23:19)
[2023-12-29 08:06] VITALS: RESP 16; O2SAT 97
--- NOTE | 2023-12-29 08:08 | PGE_ITS ---
Date of Service Date of service: 12/29/23 Time of Service: 08:08 Assessment and Plan Assessment and plan (1) Fracture of left calcaneus: Status: Acute Assessment and plan: Duplicate to consult- 58-year-old gentleman with a history of left nondisplaced calcaneal fracture. Patient presented to the ER yesterday, admitted to the surgical services after falling 14 feet from a ladder with a retroperitoneal hemorrhage. Orthopedic consultation requested. The patient was placed into a padded posterior leg splint. Patient reports that at rest his pain is adequately controlled. He does have diffuse or aching throughout his entire back but no midline point tenderness or cervical spine discomfort. He admits to an abrasion to his right elbow but denies any other extremity injury. He is awaiting physical therapy consult with crutches. He does admit to prior left elbow and right ankle surgeries. Upon evaluation this morning, resting comfortably watching TV interacting with his family. Patient appears well, nontoxic, no acute distress. Patient is in an adequately padded posterior leg splint. Patient is able to demonstrate wiggling of all toes. He is also able to demonstrate gentle flexion extension of his left knee. Sensation is intact throughout. Brisk capillary refill. Abrasion noted on the right elbow. Patient does have diffuse lumbar and thoracic discomfort but no midline tenderness. No cervical tenderness. Patient is in an adequately padded posterior leg splint. Will have PT consultation later today to be sure that he can use crutches appropriately and be nonweightbearing. Will follow-up in the orthopedic office with Dr. King in the next 10-14 days We did discuss the importance of elevation and over the counter medications such as Tylenol and Motrin for pain control. Will defer additional pain control to the surgical team whom the patient is admitted. Objective Last Vital Signs Temp 36.2 C L 12/29/23 07:43 Pulse 74 12/29/23 07:43 Resp 16 12/29/23 07:43 BP 112/72 12/29/23 07:43 Pulse Ox 97 12/29/23 07:43 Laboratory Results - last 24 hr 12/28/23 12/28/23 12/28/23 18:04 20:51 21:05 WBC 13.18 H RBC 4.18 L Hgb 13.7 Hct 38.8 L MCV 93 MCH 32.8 MCHC 35.3 RDW 14.6 H Plt Count 244 MPV 9.5 Immature Gran % 0.5 Neutrophils % 88.0 Lymphocytes % 4.9 Monocytes % 6.0 Eosinophils % 0.2 Basophils % 0.4 Nucleated RBC % 0.0 Absolute Neutrophils 11.60 H Absolute Lymphocytes 0.65 L Absolute Monocytes 0.79 Absolute Eosinophils 0.03 Absolute Basophils 0.05 PT 10.4 INR 1.0 APTT 24.6 VBG Lactate 2.3 H* Sodium 136 Potassium 3.7 Chloride 99 Carbon Dioxide 22.7 Anion Gap 14.3 H BUN 15 Creatinine 1.1 Est GFR (CKD-EPI 2020) 78.30 Glucose 99 Calcium 8.4 L Magnesium 2.0 Total Bilirubin 0.4 AST 34 ALT 28 Alkaline Phosphatase 107 Troponin I < 50 < 50 Total Protein 7.8 Albumin 3.4 Amylase Lipase 30 Urine Color Urine Clarity Urine pH Ur Specific [place] Urine Protein Urine Ketones Urine Blood Urine Nitrite Urine Bilirubin Urine Urobilinogen Ur Leukocyte Esterase Urine Glucose Patient ABO/Rh O Positive Antibody Screen NEGATIVE 12/28/23 12/29/23 23:46 06:14 WBC 7.80 RBC 4.15 L Hgb 13.6 Hct 40.3 MCV 97 H D MCH 32.8 MCHC 33.7 RDW 14.6 H Plt Count 205 MPV 9.5 Immature Gran % 0.4 Neutrophils % 78.8 Lymphocytes % 7.7 Monocytes % 11.7 Eosinophils % 0.9 Basophils % 0.5 Nucleated RBC % 0.0 Absolute Neutrophils 6.15 Absolute Lymphocytes 0.60 L Absolute Monocytes 0.91 H Absolute Eosinophils 0.07 Absolute Basophils 0.04 PT INR APTT VBG Lactate Sodium 138 Potassium 4.0 Chloride 102 Carbon Dioxide 29.0 Anion Gap 7.0 BUN 14 Creatinine 1.1 Est GFR (CKD-EPI 2020) 78.30 Glucose 108 H Calcium 8.5 Magnesium Total Bilirubin AST ALT Alkaline Phosphatase Troponin I Total Protein Albumin Amylase 55 Lipase 19 Urine Color Yellow Urine Clarity Clear Urine pH 6.0 Ur Specific [place] 1.010 Urine Protein Negative Urine Ketones Trace H Urine Blood Negative Urine Nitrite Negative Urine Bilirubin Negative Urine Urobilinogen 0.2 Ur Leukocyte Esterase Negative Urine Glucose Negative Patient ABO/Rh Antibody Screen PAWSS Have you Been Recently Intoxicated or Drunk Within the Last 30 days?: Yes Have you Ever Experienced Previous Episodes of Alcohol Withdrawal?: No Have you ever Experienced Withdrawal Seizures?: No Have you ever Experienced Delirium Tremens(DT)s?: No Have you ever undergone Alcohol Rehabilitation Treatment (i.e, inpt ot outpatient treatment programs)?: Yes Have you ever Experienced Blackouts?: Yes Have you ever Combined Alcohol with other Downers within the last 90 days?: No Have you ever Combined Alcohol with any other Substance of Abuse during the last 90 days?: No Positive Blood Alcohol level on Presentation? [PCS.BAL]: No Evidence of Increased Autonomic Activity (i.e. HR>120, tremor, sweating, agitation, nausea)?: No Result: 3 Time Spent with Patient Time Spent with Patient: <25 minutes Time was spent: preparing to see the patient(eg.review tests), ordering medications,tests, procedures, referring, communicating with other health career law clerk and counseling the patient
--- NOTE | 2023-12-29 10:02 | PGE_ITS ---
Date of Service Date of service: 12/29/23 Time of Service: 10:03 Assessment and Plan Assessment and plan (1) Retroperitoneal hemorrhage: Status: Acute Assessment and plan: Discomfort is fairly well managed this morning. Swelling noted of right flank. No ecchymosis appreciated. Hgb is stable. Await to see how he does this morning after breakfast and how well his pain is controlled. Subjective Subjective Interval history since last seen: Arrive with patient resting comfortably in bed. He reports he is having some right lower back soreness. Denies any nausea, vomiting or abdominal pain. Exam Const General: cooperative, healthy appearing and comfortable Orientation: alert and oriented x3 Resp Effort & Inspection: normal respiratory effort, no audible wheezes and no cough GI Inspection: normal to inspection and non-distended Palpation: soft, no guarding and nontender Back/Spine/Pelvis Other: No ecchymosis noted of right flank area. However, there is soft tissue swelling appreciated in this location. Slightly tender with palpation. Objective Last Vital Signs Temp 36.2 C L 12/29/23 07:43 Pulse 74 12/29/23 07:43 Resp 16 12/29/23 08:06 BP 112/72 12/29/23 07:43 Pulse Ox 97 12/29/23 08:06 Laboratory Results - last 24 hr 12/28/23 12/28/23 12/28/23 18:04 20:51 21:05 WBC 13.18 H RBC 4.18 L Hgb 13.7 Hct 38.8 L MCV 93 MCH 32.8 MCHC 35.3 RDW 14.6 H Plt Count 244 MPV 9.5 Immature Gran % 0.5 Neutrophils % 88.0 Lymphocytes % 4.9 Monocytes % 6.0 Eosinophils % 0.2 Basophils % 0.4 Nucleated RBC % 0.0 Absolute Neutrophils 11.60 H Absolute Lymphocytes 0.65 L Absolute Monocytes 0.79 Absolute Eosinophils 0.03 Absolute Basophils 0.05 PT 10.4 INR 1.0 APTT 24.6 VBG Lactate 2.3 H* Sodium 136 Potassium 3.7 Chloride 99 Carbon Dioxide 22.7 Anion Gap 14.3 H BUN 15 Creatinine 1.1 Est GFR (CKD-EPI 2020) 78.30 Glucose 99 Calcium 8.4 L Magnesium 2.0 Total Bilirubin 0.4 AST 34 ALT 28 Alkaline Phosphatase 107 Troponin I < 50 < 50 Total Protein 7.8 Albumin 3.4 Amylase Lipase 30 Urine Color Urine Clarity Urine pH Ur Specific [place] Urine Protein Urine Ketones Urine Blood Urine Nitrite Urine Bilirubin Urine Urobilinogen Ur Leukocyte Esterase Urine Glucose Patient ABO/Rh O Positive Antibody Screen NEGATIVE 12/28/23 12/29/23 23:46 06:14 WBC 7.80 RBC 4.15 L Hgb 13.6 Hct 40.3 MCV 97 H D MCH 32.8 MCHC 33.7 RDW 14.6 H Plt Count 205 MPV 9.5 Immature Gran % 0.4 Neutrophils % 78.8 Lymphocytes % 7.7 Monocytes % 11.7 Eosinophils % 0.9 Basophils % 0.5 Nucleated RBC % 0.0 Absolute Neutrophils 6.15 Absolute Lymphocytes 0.60 L Absolute Monocytes 0.91 H Absolute Eosinophils 0.07 Absolute Basophils 0.04 PT INR APTT VBG Lactate Sodium 138 Potassium 4.0 Chloride 102 Carbon Dioxide 29.0 Anion Gap 7.0 BUN 14 Creatinine 1.1 Est GFR (CKD-EPI 2020) 78.30 Glucose 108 H Calcium 8.5 Magnesium Total Bilirubin AST ALT Alkaline Phosphatase Troponin I Total Protein Albumin Amylase 55 Lipase 19 Urine Color Yellow Urine Clarity Clear Urine pH 6.0 Ur Specific [place] 1.010 Urine Protein Negative Urine Ketones Trace H Urine Blood Negative Urine Nitrite Negative Urine Bilirubin Negative Urine Urobilinogen 0.2 Ur Leukocyte Esterase Negative Urine Glucose Negative Patient ABO/Rh Antibody Screen PAWSS Have you Been Recently Intoxicated or Drunk Within the Last 30 days?: Yes Have you Ever Experienced Previous Episodes of Alcohol Withdrawal?: No Have you ever Experienced Withdrawal Seizures?: No Have you ever Experienced Delirium Tremens(DT)s?: No Have you ever undergone Alcohol Rehabilitation Treatment (i.e, inpt ot outpatient treatment programs)?: Yes Have you ever Experienced Blackouts?: Yes Have you ever Combined Alcohol with other Downers within the last 90 days?: No Have you ever Combined Alcohol with any other Substance of Abuse during the last 90 days?: No Positive Blood Alcohol level on Presentation? [PCS.BAL]: No Evidence of Increased Autonomic Activity (i.e. HR>120, tremor, sweating, agitation, nausea)?: No Result: 3 Time Spent with Patient Time Spent with Patient: <25 minutes Time was spent: preparing to see the patient(eg.review tests), obtaining and/or reviewing separately otained hiistory and counseling the patient
--- NOTE | 2023-12-29 10:53 | INITIAL_ITS ---
Date of service: 12/29/23 Time of Service: 10:53 Care Management Initial Assmt Initial Assessment REASON FOR HOSPITALIZATION:: retroperitoneal hemorrhage PREVIOUS FUNCTIONAL STATUS/SOCIAL/FAMILY SUPPORTS:: David lives in an apartment in [facility] with his partner Karen and their 2 children ages 14 and 9. 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 David is independent at baseline and does not receive any services. CURRENT FUNCTIONAL STATUS:: David was sitting up in bed when CM met with him. He was pleasant and engaged easily with CM. David described his accident and the resulting injury. As it happened on the job, it will fall under worker's compensation. David does not have any medical insurance and shared that he is not eligible for Medicaid. He attempted to get private insurance but could not afford the $1800/month cost he was quoted. CM offered to send a referral to [facility] to pursue other options for insurance which David accepted. ADVANCE DIRECTIVES:: none Has patient been provided with info about the portal/API?: Yes Did the patient sign up for the portal?: No CODE STATUS:: Full Code INSURANCE COVERAGE / FINANCIAL ISSUES:: self pay CURRENT HOME/COMMUNITY SERVICES/EQUIPMENT:: none PRIMARY CARE PHYSICIAN:: Peggy Rivero POTENTIAL DISCHARGE NEEDS:: needs insurance PATIENT/FAMILY EDUCATION NEEDS:: follow up with PCP and plan of care TRANSPORTATION:: via private vehicle with friend/family PLAN:: Anticipate David will be discharged home when medically cleared. He will follow up with his community providers and plan of care and transport via RCT vs private vehicle. CM will follow. PFSH All Active Problems Fracture of left calcaneus (Acute 12/28/23) Retroperitoneal hemorrhage (Acute) Cubital tunnel syndrome on left (Acute) Medial epicondylitis, left elbow (Acute) Olecranon bursitis of left elbow (Acute) Left lateral epicondylitis (Acute) Smoker (Acute) Alcoholism (Acute) Anxiety disorder (Acute) Systolic murmur (Acute) Medical History History of closed head injury Eczema ADD (attention deficit disorder) Low back pain Gout Social History Smoking/Tobacco Use Status: Current every day Tobacco Type: cigarettes Smoking risk assessment performed?: Yes Alcohol Intake: current Alcohol Intake frequency: 3 or more drinks per day Alcohol type: beer Drug use: Never Substance use type: does not use Housing: apartment Current gender identity: male Do you feel safe in your relationship?: No SDOH(Care Management) Screening Will the Patient Participate in the Screening?: Yes Do you worry about having a steady place to live?: no In the past 12 months, have you had to go without electric, gas, oil or water in your home?: no Have you or anyone in your house had to go without enough food to eat?: no Has lack of transportation kept you from medical appointments or from doing things needed for daily living?: no Has anyone in your support network made you feel unsafe for any reason?: no
[2023-12-29] MEDS: Ketorolac 15 MG/ML VIAL IVP ×3 (12:17→23:18)
--- NOTE | 2023-12-29 13:32 | IN_ITS ---
PT Notes Visit Reasons: Retroperitoneal Hemoatoma Physical Therapy Inpatient Initial Evaluation Date: 12/29/2023 Referring Doctor: Gabbie Menezes MD PT Orders: PT CONSULT: Left calcaneal fracture. Crutches and nonweight bearing gait Precautions: Fall. Standard. NWB on L LE per Dr. King and Dr. Menezes. Patient Profile/Admitting Diagnosis: David is a 58-year-old male who presented to the ED due to 14 foot fall from while landing on his left ankle patient admitted for management of retroperitoneal hemorrhage, minimally displaced fracture of the left calcaneus, and chronic low back pain. Per Dr. Menezes, patient has 2 vertebral osteophytes which broke off when patient fell and this has aggravated patient's back problem as well. PMHX: All Active Problems Fracture of left calcaneus (Acute 12/28/23) Retroperitoneal hemorrhage (Acute) Cubital tunnel syndrome on left (Acute) Medial epicondylitis, left elbow (Acute) Olecranon bursitis of left elbow (Acute) Left lateral epicondylitis (Acute) Smoker (Acute) Alcoholism (Acute) Anxiety disorder (Acute) Systolic murmur (Acute) Medical History History of closed head injury Eczema ADD (attention deficit disorder) Low back pain Gout Social History/Home Situation: Works for a [employer]. Independent with all aspects of ADLs prior to admission. Lives with in a private home with 30 steps to enter. Equipment Owned/DME: None Subjective: Complained of pain in back of up to 8/10 with walking using the bilateral axillary crutches. Pain in L at 5-6/10. Reported being unstable using crutches. [place] more steady with less pain using the walker. Stated that he has about 65 feet to walk from bedroom to bathroom. works during the day. Objective: General Observation: Resting in bed L LE on a posterior splint elevated on pillows. Mental Status: Alert and oriented as to person, place, time, and purpose. Able to pay attention, focus, and respond appropriately. Pain: As above Vital Signs: Closely monitored by nursing staff ROM: Right Upper Extremity: Shoulder Flexion WFL. Shoulder abduction WFL. Elbow flexion WFL. Wrist flexion WFL. Functional opening and closing of hand WFL. Left Upper Extremity: Shoulder Flexion WFL. Shoulder abduction WFL. Elbow flexion WFL. Wrist flexion WFL. Functional opening and closing of hand WFL. Right Lower Extremity: Hip flexion WFL. Hip abduction WFL. Knee flexion WFL. Ankle dorsiflexion WFL. Ankle plantarflexion WFL. Left Lower Extremity: Hip flexion WFL. Hip abduction WFL. Knee flexion WFL. Ankle dorsiflexion NT. Ankle plantarflexion NT. Strength: Right Upper Extremity: Shoulder flexors 5/5. Shoulder abductors 5/5. Elbow flexors 5/5. Elbow extensors 5/5. [employer] strong. Left Upper Extremity: Shoulder flexors 5/5. Shoulder abductors 5/5. Elbow flexors 5/5. Elbow4 extensors 5/5. [employer] strong. Right Lower Extremity: Hip flexors 4/5. Hip abductors 4/5. Knee flexors 5/5. Knee extensors /5. Ankle dorsiflexors 4/5. Ankle plantarflexors 4/5. Left Lower Extremity: Hip flexors 4-/5. Hip abductors 4-/5. Knee flexors 4-/5. Knee extensors 4-/5. Ankle dorsiflexors NT. Ankle plantarflexors NT. Bed Mobility/Transfers: Minimal cueing provided for use of B hands as needed for support, movement sequence, AD management, and posture to reduce fall risk and minimize pain report I Rolling supervision Supine to sit supervision Sit to supine set up assist with pillows for L LE Sit to stand stand by assist Stand to sit stand by assist Bed to reclining chair contact guard assist Reclining chair to bed contact guard assist Gait: Facilitated safe level surface ambulation covering a distance of 8 hops + 8 hops using bilateral axillary crutches with near loss of balance during a turn due to pain level in the back area. Was able to cover same distance using the front- wheeled walker and felt more safe and secure. Balance: Static Sitting: Normal Dynamic Sitting: Ana Static Standing: Fair Dynamic Standing: Unable Special Tests: Mobility Limitations Standardized Measure [facility] AM-PAC 6 clicks Basic Mobility Inpatient Short Form: Raw Score: 19 CMS Score: 42% deficit Informed Consent/Education: Patient was instructed in purpose of PT consult and plan of care. Agreeable to proceed with established PT POC to achieve personal goals. Assessment: NWB on the L LE due to L calcaneal fracture per orthopedic and general surgeons' recommendation. More stable with use of FWW. Pain in low back increasing risk for falls. Patient presents with clinical signs and symptoms consistent with current/admitting diagnoses that have resulted to mobility limitations, gait instability, generalized weakness, and overall ADL decline as demonstrated by the following impairment level findings: 1. Decreased strength to L LE major muscle groups 2. Impaired standing balance 3. Impaired activity tolerance 4. Limitation of joint range of motion in L ankle due to WB restriction 5. Pain in low back Impairments are contributing to the following functional limitations: 1. Decline in bed mobility skills 2. Decline in transfer skills 3. Difficulty with ambulation without assistive device and physical assistance 4. Increased completion time for mobility ADL performance 5. Increased risk for falls 6. Difficulty with managing steps alone safely Patient is assessed as a [id number] moderate complexity based on the following: History: 58-year-old male with past medical history as indicated above Examination: Demonstrable impairment in strength, balance, and mobility level with underlying impairments and functional limitations as exhibited above as well as deficit score of 42% utilizing the [facility] Mobility Inpatient Short Form Presentation: Evolving Decision Makin moderate complexity Goals: Goals X1 week 1. Supine-Sit independent 2. Sit-Supine independent 3. Sit-Stand independent 4. Stand-Sit independent with FWW 5. Bed-Chair independent with FWW 6. Chair-Bed independent with FWW 7. Independent gait on level surface with use of FWW for at least 65 feet without report of pain nor dyspnea 8. Independent stair negotiation while holding onto B rails for at least 30 steps without report of pain nor dyspnea 9. Independent with home exercise program 10. Good static and dynamic standing balance/tolerance Plan of Care/Treatment Plan: 1-2x/day, 7 days/week x 1 week. Plan of care has been reviewed with the POOL NURSE providing the service under Physical Therapy direction. Initiate Physical Therapy intervention for pain management as needed, strengthening, bed mobility, transfers, gait, stairs, balance training, and use of assistive device. -Premedicate for pain. Focus on walking and stairs training. DISCHARGE RECOMMENDATIONS: [] Home with no services [] [X] Home with services. Patient will benefit from home health PT services in order to progress mobility level using least restrictive assistive ambulatory device, assess home safety, identify additional equipment needs, and establish a functional maintenance program that will increase ability of patient to remain at home. [] Home with outpatient PT [] [] SNF for continued rehabilitation [] [] Res Habilitation Assistant Care [] [] SNF versus LTC based on ability to participate and progress [] TREATMENT CODE/TIME: 9716 2 x 21 minutes for 1 unit (13:31-13:53). Thank you for the opportunity to participate in the care of this patient. Michelle Estevez PT, DPT, CLT [facility] [place], [place]
--- NOTE | 2023-12-29 14:32 | W.EDPROG ---
Date of service: 12/28/23 Time of Service: 14:32 Medical Decision Making Spoke with the radiologist, Dr. Braga, fractures to L4-L5 osteophytes, relayed to Dr. Menezes as patient is currently admitted to our facility, will follow Quality:SDOH Health Related Social Needs: No Data to Display Discharge Plan Disposition Patient Disposition: Admit to [facility] Condition: Stable Discharge Details Clinical Impression: Retroperitoneal hemorrhage, Fracture of left calcaneus Admit Date/Time: 12/28/23 21:05 Admit Provider: Alex Alcala Attending Provider: Alex Alcala Primary Care Provider: Peggy Rivero V ED Provider: Alex Romero Discharge Data Discharge Date/Time-TO BE ENTERED AT DEPARTURE: 12/28/23 21:38
[2023-12-29 15:16] VITALS: BP 121/67; PULSE 61; RESP 18; TEMP 36.5; O2SAT 98
--- NOTE | 2023-12-29 15:49 | PHA.REVIEW2 ---
Pharmacy Admission Review Admission Clinical Review Admission Pharmacy Review: Fracture of left calcaneus (Acute 12/28/23) Retroperitoneal hemorrhage (Acute) No Known Allergies Allergy (Unverified 12/28/23 17:47) Resuscitation Status Full Code Height 5 ft 11 in Weight 84.8 kg Pharmacy Admission Review Renal Dosing Renal Dosing: BUN 14 mg/dL (7-18) 12/29/23 06:14 Creatinine 1.1 mg/dL (0.70-1.30) 12/29/23 06:14 Medications needing adjustments: Reviewed (CrCl 88 mL/min) Anticoagulation Anticoagulation: Hgb 13.6 g/dL (13.5-17.5) 12/29/23 06:14 Hct 40.3 % (40.0-50.0) 12/29/23 06:14 Plt Count 205 10^3/uL (130-400) 12/29/23 06:14 INR 1.0 (0.9-1.1) 12/28/23 18:04 Creatinine 1.1 mg/dL (0.70-1.30) 12/29/23 06:14 DVT Prophylaxis: Reviewed (None at this time due to hematoma) Relevant Labs Relevant Labs: Sodium 138 mmol/L (136-145) 12/29/23 06:14 Potassium 4.0 mmol/L (3.5-5.1) 12/29/23 06:14 Chloride 102 mmol/L (98-107) 12/29/23 06:14 Magnesium 2.0 mg/dL (1.8-2.4) 12/28/23 18:04 Electrolytes, C-Reactive P, ESR: Reviewed (Glucose 108) Cardiac Review Cardiac Review: Troponin I < 50 ng/L (< or =60) 12/28/23 20:51 BP, HR, EF%: Reviewed (HR and BP WNL) QTc Review QTc: Reviewed (456 from 12/28/23) IV to PO Switch IV Medications: Reviewed (IV ondansetron) Home Meds Home Med List reviewed: Reviewed Current Meds Current Medication Order Review: Reviewed
--- NOTE | 2023-12-29 16:03 | CHAPLAIN ---
David was resting in bed when I visited. He was pleasant and engaged in a conversation. I explained my role and offered support.
--- NOTE | 2023-12-29 19:04 | PGE_ITS ---
Date of Service Date of service: 12/29/23 Time of Service: 19:05 Assessment and Plan Assessment and plan (1) Alcoholism: Status: Acute (2) Systolic murmur: Status: Acute (3) Fracture of left calcaneus: Status: Acute Qualifiers: Calcaneus location: body Encounter type: subsequent encounter Fracture alignment: nondisplaced Fracture type: closed (4) Left lateral epicondylitis: Status: Acute (5) Retroperitoneal hemorrhage: Status: Acute (6) Smoker: Status: Acute (7) Fatty liver: Status: Acute (8) DJD (degenerative joint disease), lumbar: Status: Acute (9) Osteophyte: Status: Acute Qualifiers: Osteophyte location: vertebra Qualified Code(s): M25.78 - Osteophyte, vertebrae (10) Microscopic hematuria: Status: Acute (11) Gout: (12) Low back pain: Subjective Subjective Interval history since last seen: Pt seen adn examined. Agree w/ T. Elpidio ANTOINE assessment. Notes from ortho adn PT appreciated. Pt did not do well w/ crutches or walker. Cont training. pt c/o back pain more than ankle pain. He does have a Fx through x2 of the osteophytes off of L4& L5 -adjust pain meds -encourage INC spirom -cont to work w/ PT. Pt will require walked w/ D/C -Pt has appt w/ ortho established already. -Needs home PT per PT. Will have CM arrange -still has nt moved his bowels. -encouraged Smoking Cessation -repeat UA in am This document was created with voice activated software and may contain errors. 30 mins spent with the patient today. Exam Const General: cooperative, healthy appearing and comfortable Nutritional Appearance: average body habitus Orientation: alert, awake and oriented x3 HENMT Head: normal to inspection, no palpable skull fracture and atraumatic Ears: hearing grossly normal bilaterally General nose exam: external nose normal Face and sinus: normal facial exam Teeth and gingiva: poor dentition Eyes General: appearance normal, both eyes and all related structures Sclera: sclerae normal Pupils: PERRL EOM: EOM intact bilaterally Direct ophthalmoscopy: no photophobia Other: no headache. no changes in vision/hearing/bite Neck Neck: normal visual inspection, full ROM, trachea midline and tender Other: no neck pain w/ rom. Chest Chest: normal inspection of the chest and normal palpation of entire chest wall Objective Last Vital Signs Temp 36.5 C 12/29/23 15:16 Pulse 61 12/29/23 15:16 Resp 18 12/29/23 15:16 BP 121/67 12/29/23 15:16 Pulse Ox 98 12/29/23 15:16 Laboratory Results - last 24 hr 12/28/23 12/28/23 12/28/23 20:51 21:05 23:46 WBC RBC Hgb Hct MCV MCH MCHC RDW Plt Count MPV Immature Gran % Neutrophils % Lymphocytes % Monocytes % Eosinophils % Basophils % Nucleated RBC % Absolute Neutrophils Absolute Lymphocytes Absolute Monocytes Absolute Eosinophils Absolute Basophils Sodium Potassium Chloride Carbon Dioxide Anion Gap BUN Creatinine Est GFR (CKD-EPI 2020) Glucose Calcium Troponin I < 50 Amylase Lipase Urine Color Yellow Urine Clarity Clear Urine pH 6.0 Ur Specific [place] 1.010 Urine Protein Negative Urine Ketones Trace H Urine Blood Negative Urine Nitrite Negative Urine Bilirubin Negative Urine Urobilinogen 0.2 Ur Leukocyte Esterase Negative Urine Glucose Negative Patient ABO/Rh O Positive Antibody Screen NEGATIVE 12/29/23 06:14 WBC 7.80 RBC 4.15 L Hgb 13.6 Hct 40.3 MCV 97 H D MCH 32.8 MCHC 33.7 RDW 14.6 H Plt Count 205 MPV 9.5 Immature Gran % 0.4 Neutrophils % 78.8 Lymphocytes % 7.7 Monocytes % 11.7 Eosinophils % 0.9 Basophils % 0.5 Nucleated RBC % 0.0 Absolute Neutrophils 6.15 Absolute Lymphocytes 0.60 L Absolute Monocytes 0.91 H Absolute Eosinophils 0.07 Absolute Basophils 0.04 Sodium 138 Potassium 4.0 Chloride 102 Carbon Dioxide 29.0 Anion Gap 7.0 BUN 14 Creatinine 1.1 Est GFR (CKD-EPI 2020) 78.30 Glucose 108 H Calcium 8.5 Troponin I Amylase 55 Lipase 19 Urine Color Urine Clarity Urine pH Ur Specific [place] Urine Protein Urine Ketones Urine Blood Urine Nitrite Urine Bilirubin Urine Urobilinogen Ur Leukocyte Esterase Urine Glucose Patient ABO/Rh Antibody Screen PAWSS Have you Been Recently Intoxicated or Drunk Within the Last 30 days?: Yes Have you Ever Experienced Previous Episodes of Alcohol Withdrawal?: No Have you ever Experienced Withdrawal Seizures?: No Have you ever Experienced Delirium Tremens(DT)s?: No Have you ever undergone Alcohol Rehabilitation Treatment (i.e, inpt ot outpatient treatment programs)?: Yes Have you ever Experienced Blackouts?: Yes Have you ever Combined Alcohol with other Downers within the last 90 days?: No Have you ever Combined Alcohol with any other Substance of Abuse during the last 90 days?: No Positive Blood Alcohol level on Presentation? [PCS.BAL]: No Evidence of Increased Autonomic Activity (i.e. HR>120, tremor, sweating, agitation, nausea)?: No Result: 3 Time Spent with Patient Time Spent with Patient: 25-34 minutes Time was spent: preparing to see the patient(eg.review tests), obtaining and/or reviewing separately otained hiistory, ordering medications,tests, procedures, referring, communicating with other health skin care technician, indepentently interpreting results, counseling the patient and care coordination
[2023-12-29] MEDS: Gabapentin 300 MG CAP PO (20:35)
[2023-12-29] MEDS: Polyethylene Glycol 3350 17 GM PACKET PO (20:35)
[2023-12-29 23:16] VITALS: BP 116/74; PULSE 67; RESP 16; TEMP 36.5; O2SAT 96
[2023-12-30] MEDS: Ketorolac 15 MG/ML VIAL IVP ×2 (05:43→11:41)
[2023-12-30] MEDS: Normal Saline Flush 10 ML SYR IVP ×3 (05:44→09:23)
[2023-12-30] MEDS: Acetaminophen 500 MG TAB 1000 MG PO ×2 (05:44→11:41)
[2023-12-30 06:37] LABS: Bilirubin Negative (Negative); Blood Trace-lysed (Negative); Clarity Clear (Clear); Glucose Negative (Negative); Ketones Negative (Negative); Leukocyte Esterase Negative (Negative); Nitrite Negative (Negative); Urobilinogen 0.2 mg/dL (Up to 0.2)
[2023-12-30 06:44] LABS: Bacteria Negative HPF (Negative); C & S Indicated? No; Casts Negative LPF (Negative); Crystals Negative HPF (Negative); Epithelial Cells Rare HPF (Negative); Mucus Negative (Negative); RBC 0-2 HPF (0-2); WBC Negative HPF (0-5)
[2023-12-30] MEDS: Polyethylene Glycol 3350 17 GM PACKET PO ×2 (08:00→13:53)
[2023-12-30] MEDS: Gabapentin 300 MG CAP PO ×2 (08:00→13:50)
[2023-12-30] MEDS: Docusate Sodium 100 MG CAP PO ×2 (08:00→13:50)
[2023-12-30 08:10] VITALS: BP 118/77; PULSE 59; RESP 16; TEMP 36.3; O2SAT 97
[2023-12-30 09:01] LABS: HCT 40.3 % (40.0-50.0); HGB 13.1 g/dL (13.5-17.5)
--- NOTE | 2023-12-30 09:18 | PTTR_ITS ---
PT Notes Visit Reasons: Retroperitoneal Hemoatoma Date: 12/30/23 PRECAUTIONS: Fall. Standard. NWB on L LE per Dr. King and Dr. Menezes. SUBJECTIVE: Pt in bed visiting with family, pt looking forward to participating with therapy session. OBJECTIVE: ? PAIN: 3/10 lowback pain, 3/10 left elbow pain, 3/10 left calcaneal pain VITALS: monitored by nursing? Therapeutic Activities [id number]: Direct one-on-one instruction in dynamic activities to improve functional performance. ?? BED MOBILITY/TRANSFERS? Rolling L/R: independent Supine-sit: ?independent ? Sit-supine: ? independent ? Sit-stand: ?SBA ? Stand-sit: ??SBA ? Bed-Chair:? ?SBA ? Chair-bed: SBA Provided skilled cues and instruction on performance and technique throughout. Gait Training [id number]: Direct one-on-one instruction and skilled instruction in: Employing an assistive device Modified weight-bearing status Movement sequencing Turning and movement with proper form Provided verbal cues for equipment management and technique Provided instruction in gait pattern Patient education regarding pacing and breathing techniques to maximize activity tolerance? GAIT? Assistive Device: ??FWW/ bilateral axillary crutch ? Weight bearing: NWB LLE Assist: ? SBA? Distance:??70' FWW, 75'x?2 bilateral axillary crutch? Deviation: ?Hop, step to on FWW, Step through gait pattern on crutches? STAIRS:? Facility stairs, 2 flights 12steps each flight ?Standing rest break in between flights CGA ? ASSESSMENT:?Pt tolerated activity well, did not report pain escalation with activity. PLAN: Continue with balance training, global strengthening and general condition ing for improved safety, mobility and activity tolerance until pt is ready for DC. TREATMENT CODE/TIME: 57770z2, 39833a0 25mins (8:55-9:20am)
[2023-12-30] MEDS: Lidocaine 5% Patch 1 PATCH TP (09:22)
--- NOTE | 2023-12-30 12:16 | PGE_ITS ---
Date of Service Date of service: 12/30/23 Time of Service: 12:16 Assessment and Plan Assessment and plan (1) Anxiety disorder: Status: Acute (2) Alcoholism: Status: Acute (3) Systolic murmur: Status: Acute (4) Fatty liver: Status: Acute (5) Microscopic hematuria: Status: Acute (6) Fracture of left calcaneus: Status: Acute Qualifiers: Encounter type: subsequent encounter Calcaneus location: body Fracture type: closed Fracture alignment: nondisplaced (7) DJD (degenerative joint disease), lumbar: Status: Acute (8) Retroperitoneal hemorrhage: Status: Acute Assessment and plan: d/c home today see orders f/u in clinic recheck labs. Pt is a smoker. if continued hematuria- f/u Uro. retroperitoneal bleed was minimal. This document was created with voice activated software and may contain errors. 15 mins spent with the patient today. (9) Smoker: Status: Acute Subjective Subjective Interval history since last seen: Pt is doing well. no headaches. No CP or SOB. no productive cough. no dysuria. no leg pain or swelling. Back pain is better controlled. pt is walking using crutches. He had a small BM. Exam Const General: cooperative, comfortable and no acute distress Other: L: CTA b/l cardio- regular abdomen- non tender. LE are warm and pink w/ good pulses. able to move toes. splint in place. no numbness or tingling Objective Last Vital Signs Temp 36.3 C L 12/30/23 08:10 Pulse 59 L 12/30/23 08:10 Resp 16 12/30/23 08:10 BP 118/77 12/30/23 08:10 Pulse Ox 97 12/30/23 08:10 Laboratory Results - last 24 hr 12/30/23 12/30/23 06:16 08:48 Hgb 13.1 L Hct 40.3 Urine Color Yellow Urine Clarity Clear Urine pH 6.0 Ur Specific [place] 1.010 Urine Protein Negative Urine Ketones Negative Urine Blood Trace-lysed H Urine Nitrite Negative Urine Bilirubin Negative Urine Urobilinogen 0.2 Ur Leukocyte Esterase Negative Urine RBC 0-2 Urine WBC Negative Ur Epithelial Cells Rare Urine Crystals Negative Urine Bacteria Negative Urine Casts Negative Urine Mucus Negative Ur Culture Indicated? No Urine Glucose Negative PAWSS Have you Been Recently Intoxicated or Drunk Within the Last 30 days?: Yes Have you Ever Experienced Previous Episodes of Alcohol Withdrawal?: No Have you ever Experienced Withdrawal Seizures?: No Have you ever Experienced Delirium Tremens(DT)s?: No Have you ever undergone Alcohol Rehabilitation Treatment (i.e, inpt ot outpatient treatment programs)?: Yes Have you ever Experienced Blackouts?: Yes Have you ever Combined Alcohol with other Downers within the last 90 days?: No Have you ever Combined Alcohol with any other Substance of Abuse during the last 90 days?: No Positive Blood Alcohol level on Presentation? [PCS.BAL]: No Evidence of Increased Autonomic Activity (i.e. HR>120, tremor, sweating, agitati on, nausea)?: No Result: 3 Time Spent with Patient Time Spent with Patient: <25 minutes Time was spent: preparing to see the patient(eg.review tests), obtaining and/or reviewing separately otained hiistory, ordering medications,tests, procedures, referring, communicating with other health client care representative, indepentently interpreting results, counseling the patient and care coordination
--- NOTE | 2023-12-30 13:03 | W.PM.DS.N ---
Date of service: 12/30/23 Time of Service: 13:11 DS: Diagnosis Discharge Diagnosis (1) Alcoholism: Status: Acute (2) Systolic murmur: Status: Acute (3) Fracture of left calcaneus: Status: Acute (4) Left lateral epicondylitis: Status: Acute (5) Retroperitoneal hemorrhage: Status: Acute (6) Smoker: Status: Acute (7) Fatty liver: Status: Acute (8) DJD (degenerative joint disease), lumbar: Status: Acute (9) Osteophyte: Status: Acute (10) Microscopic hematuria: Status: Acute (11) Gout: (12) Low back pain: Discharge Plan Disposition Patient Disposition: Home Condition: Good Discharge Details Reason For Visit: Retroperitoneal Hemoatoma Admit Date/Time: 12/28/23 21:05 Admit Provider: Alex Alcala Attending Provider: Alex Alcala Primary Care Provider: Peggy Rivreo V Hospital Course Hospital Course: see addens Home Meds and New Rx's Prescriptions: New polyethylene glycol 3350 17 gram Powder In Packet 17 g PO DAILY 30 Days Qty: 238 1RF tramadol 50 mg Tablet 50 mg PO Q6H PRN PRN (Reason: Pain) Qty: 10 0RF docusate sodium [Colace] 100 mg Capsule 100 mg PO TID 90 Days Qty: 270 0RF gabapentin 300 mg Capsule 300 mg PO TID 90 Days Qty: 270 3RF metaxalone 800 mg Tablet 800 mg PO TID PRN PRN30 Days Qty: 60 2RF Discharge Instructions Additional Instructions: -No driving until you see ortho or of you are taking narcotic pain medications. -[facility] Phone number: [phone] -Regular diet -no straining to move bowels -pain meds are very constipating: if you do not move your bowels daily take a dose of OTC Miralax -It is ok to shower. You will need to wrap your leg in a garbage bag and not get this wet. You may find that your appetite is smaller. Eat 3-6 small meals throughout the day. It is important to drink lots of water, , 6-10 glasses a day. -If you were given an incentive spirometry (breathing teenage program director?), continue to do this 10x/hour while awake. -We do want you up walking, at least 5-6 times per day. This is very important to prevent pneumonia and blood clots. No weightbearing-on your ankle -You may find that you are very tired- this is normal. -please do not smoke for a minimum of 72 hours after surgery. -Follow-up with orthopedics as previously scheduled -Home health and home PT ?? Pain Management Protocol -Tylenol 1000mg every 6 hours.? Tylenol is an anti-inflammatory. -Ibuprofen 600mg every 6hrs prn pain.? Do not take aspirin while taking this medication.? Take this medication w/ food. Do not take on an empty stomach. -Use ice.? This also helps to keep swelling down *?It is important to take these medications to keep the swelling down.? Swelling is what causes pain. -Gabapentin 300mg by mouth every 3 hrs --Skelaxin: muscle relaxant you can take as needed for pain >7. -Tramadol for breakthrough pain that is not relieved by Skelaxin. -Metamucil daily for bowels/constipation.? Do NOT strain to move your bowels!? This is like lifting 50#'s.? ?OR- Mirlax daily to prevent constipation. All these medications work in concert together?to produce a symphony of pain control.? You need to take them as a TOGETHER in order to control the pain,?NOT just pick and choose which one you want to take.? There is not one thing that completely controls pain.? AND there are multiple factors that produce the sensation of pain- so no one thing is going to control it. So in order to have a symphony of pain control- you need to use ALL of them together. ? ? Activity:: see above Equipment/Supplies:: Crutches Diet:: As Tolerated Discharge Orders Discharge Orders: Discharge Order (Routine); Ordered 12/30/23 Ordered By: Gabbie Menezes DS: Summary Time Spent with Patient providing and/or coordinating discharge services: Greater than 30 minutes Status at Discharge Functional status at discharge: uses cane/walker Overall status at discharge: patient is progressing back to baseline Mental Status: mental status grossly normal Speech and Movement: speech and movement normal Mood: congruent mood Affect: normal affect Quality:SDOH Health Related Social Needs: No Data to Display Exam Psych Mental Status: mental status grossly normal Speech and Movement: speech and movement normal Mood: congruent mood Affect: normal affect DS: Data Vitals/I&O Vitals and I&O: Vital Signs Temperature 36.3 C L 12/30/23 08:10 Temperature Source Tympanic 12/30/23 08:10 Pulse 59 L 12/30/23 08:10 Pulse Rhythm Irregular 12/30/23 08:10 Pulse 63 12/28/23 20:01 Respiratory Rate 16 12/30/23 08:10 Respiratory Effort Normal, Non-Labored 12/30/23 08:10 Respiratory Depth Normal 12/30/23 08:10 Respiratory Pattern Normal 12/30/23 08:10 Blood Pressure 118/77 12/30/23 08:10 Blood Pressure Mean 81 12/28/23 20:00 Pulse Oximetry 97 12/30/23 08:10 Oxygen Delivery Method Room Air 12/30/23 08:10 Oxygen Flow Rate 0 12/30/23 08:10 Pain Level 6 12/30/23 11:41 Comment RN Notified 12/28/23 21:48 Intake & Output 12/29/23 12/30/23 12/30/23 23:59 11:59 23:59 Intake Total 270 / 730 Output Total 1700 / 2400 850 / 850 Balance -1430 / -1670 -835 / -835 Intake: IV Oral 250 / 700 Output: Urine 1700 / 2400 850 / 850 Other: Urine Color Yellow Yellow Urine Appearance Cloudy Clear Urine Odor Normal Normal Comment unmeasured Stool Size Small Stool Characteristics Soft Voiding Methods Urinal Urinal Toilet Data Completed and Pending Labs on day of discharge: Labs from last 24 hours 12/30/23 12/30/23 08:48 06:16 Hgb 13.1 L Hct 40.3 Urine Color Yellow Urine Clarity Clear Urine pH 6.0 Ur Specific [place] 1.010 Urine Protein Negative Urine Ketones Negative Urine Blood Trace-lysed H Urine Nitrite Negative Urine Bilirubin Negative Urine Urobilinogen 0.2 Ur Leukocyte Esterase Negative Urine RBC 0-2 Urine WBC Negative Ur Epithelial Cells Rare Urine Crystals Negative Urine Bacteria Negative Urine Casts Negative Urine Mucus Negative Ur Culture Indicated? No Urine Glucose Negative PFSH All Active Problems (Updated 12/29/23 @ 19:15 by Gabbie Menezes DO) Microscopic hematuria (Acute) Osteophyte (Acute) Fx through O-phytes of L4-5 DJD (degenerative joint disease), lumbar (Acute) Fatty liver (Acute) Fracture of left calcaneus (Acute 12/28/23) Retroperitoneal hemorrhage (Acute) Cubital tunnel syndrome on left (Acute) Medial epicondylitis, left elbow (Acute) Olecranon bursitis of left elbow (Acute) Left lateral epicondylitis (Acute) Smoker (Acute) Alcoholism (Acute) Anxiety disorder (Acute) Systolic murmur (Acute) Medical History (Updated 12/29/23 @ 19:15 by Gabbie Menezes DO) History of closed head injury Eczema ADD (attention deficit disorder) Low back pain chronic Gout Social History Smoking/Tobacco Use Status: Current every day Tobacco Type: cigarettes Smoking risk assessment performed?: Yes Alcohol Intake: current Alcohol Intake frequency: 3 or more drinks per day Alcohol type: beer Drug use: Never Substance use type: does not use Housing: apartment Current gender identity: male Do you feel safe in your relationship?: No Time Spent with Patient Time Spent with Patient: <45 minutes Time was spent: preparing to see the patient(eg.review tests), obtaining and/or reviewing separately otained hiistory, ordering medications,tests, procedures, referring, communicating with other health direct care staffer, indepentently interpreting results, counseling the patient and care coordination
--- NOTE | 2023-12-30 13:24 | PDOC.HHF2F_ITS ---
Home Health Referral Home Health Orders Clinical synopsis of why skilled professionals are needed: Retroperitoneal hematoma,/blunt trauma to back/left ankle fracture Medical diagnosis necessitation home health referral: Mobility/strength/gait training Physical Therapist: Check all that apply Increase strength & endurance for safe mobility at home: Ordered To design/establish home maintenance program: Ordered Fall reduction therapy program for patient with history of frequent falls: Ordered Home safety evaluation and teaching/gait training including stair management (if applicable): Ordered Home Bound Status Requires the aid of supportive device (check all that apply): Crutches Assistance of another person (Describe assistance and medical necessity): Patient cannot drive and has difficulty walking due to fracture Patient has a condition such that leaving home is medically contraindicated (Describe): Pain Describe why leaving home would require a considerable and taxing effort: Side effects from pain medication (sedation/drowsiness), Requires frequent rest periods, Confusion, Safety Concerns: describe and Requires alternative accommodations: Encounter Date and Reason: I certify that a FTF encounter for this patient was performed on December 30, 2023 and that such encounter was related to the primary reason the patient requires home health services. The encounter was conducted in the following manner: * By me as the certifying physician, DAIRY LAB TECHNICIAN, PA or * By an inpatient physician, DAIRY LAB TECHNICIAN or PA during an inpatient stay who communicated findings to me, Certification And Authentication I certify that I composed the above information based on my clinical judgment relating to this patient's medical condition and, if applicable, clinical findings communicated to me by the NPP or inpatient physician who performed the FTF encounter. Name of Provider that will be monitoring home health services: Gabbie Menezes
--- NOTE | 2023-12-30 14:16 | PDOC.CMDIS ---
Date of service: 12/30/23 Time of Service: 14:49 LACE Index Scoring Tool Questions: Length of Stay (in days): 2 Was the patient admitted via the E.D.?: Yes E.D. Visits: 0 Answers: Total Score: 5 Risk of Readmission: Low Risk Care Management Discharge Plan Reason for Hospitalization: retroperitoneal hemorrhage Discharge Plan: David will return home today with new orders for HH PT. notified HH and reported that David will be filing for worker's compensation for this care, due to his injury while at work. His will drive him home via private vehicle. He will follow up with his PCP and discharge plan of care. He is happy to be going home. Patient/Family Education Needs: Review discharge instructions and limitations, discussion of self care needs including ask me three. Services Needed at Discharge: Home Health Care Services (new HH PT) SDOH Health Related Social Needs: No Data to Display
== END 2023-12-30 14:45 | disposition home or self-care (01) ==
LOC: ER 19:56 → MS 21:40
PROVIDERS: Surgery; Admitting Provider Surgery; Emergency Provider Physician Assistant; PCP Family Medicine; Visit Provider Surgery
DX: S92.002A Unspecified fracture of left calcaneus, initial encounter for closed fracture (principal); S36.899A Unspecified injury of other intra-abdominal organs, initial encounter; S32.048A Other fracture of fourth lumbar vertebra, initial encounter for closed fracture; S32.058A Other fracture of fifth lumbar vertebra, initial encounter for closed fracture; F10.20 Alcohol dependence, uncomplicated; R01.1 Cardiac murmur, unspecified; M77.12 Lateral epicondylitis, left elbow; F17.210 Nicotine dependence, cigarettes, uncomplicated; K76.0 Fatty (change of) liver, not elsewhere classified; R31.29 Other microscopic hematuria; M10.9 Gout, unspecified; M54.50 Low back pain, unspecified; F41.9 Anxiety disorder, unspecified; W13.2XXA Fall from, out of or through roof, initial encounter; Y93.H3 Activity, building and construction; Y99.0 Civilian activity done for income or pay; M25.78 Osteophyte, vertebrae
CPT/HCPCS: 00123; 36415; 73552; 74177; 80048; 80053; 83690; 86850; 86900; 86901; 93005; 96365; 96375; 96376; 97110; 97116; 97162; 99285; 70450; 71260; 72125; 73080; 73610; 81003; 81015; 82150; 83605; 83735; 84484; 85014; 85018; 85025; 85610; 85730; 93010; G0378; J0131; J1170; J1885; J2405; J3010; J3490

== ENCOUNTER 2024-01-09 12:06 | Outpatient (CLI) | payer OTHER, SELFPAY ==
[2024-01-09 09:32] LABS: Abs Immature Grans 0.02 10^3/uL (0.0-0.06); Absolute Basophil Count 0.07 10^3/uL (0.0-0.2); Absolute Eosinophil Count 0.21 10^3/uL (0.0-0.7); Absolute Lymphocyte Count 1.03 10^3/uL (1.2-3.4); Absolute Monocyte Count 1.09 10^3/uL (0.1-0.8); Absolute Neutrophil Count 6.36 10^3/uL (1.2-6.7); Basophils % 0.8; Eosinophils % 2.4; HCT 40.8 % (40.0-50.0); HGB 13.6 g/dL (13.5-17.5); Immature Grans % 0.2; Lymphocytes % 11.7; MCH 32.2 pg (27.0-33.0); MCHC 33.3 % (32.0-36.0); MCV 97 fL (80-95); MPV 9.2 fL (8.0-11.0); Monocytes % 12.4; Neutrophils % 72.5; Platelet Count 369 10^3/uL (130-400); RBC 4.23 10^6/uL (4.36-5.78); RDW 13.5 % (11.8-14.1); RDW-SD 48.2 fL; WBC 8.78 10^3/uL (4.4-10.8)
[2024-01-09 10:02] LABS: Ferritin 369 ng/mL (26-388)
[2024-01-09 10:23] LABS: C-Reactive Protein 4.39 mg/dL (<or=0.5)
== END 2024-01-09 12:07 | disposition home or self-care (01) ==
LOC: LBO 12:06
PROVIDERS: PCP Family Medicine; Visit Provider Surgery
DX: C50.912 Malignant neoplasm of unspecified site of left female breast (principal); F41.9 Anxiety disorder, unspecified; F10.20 Alcohol dependence, uncomplicated; R01.1 Cardiac murmur, unspecified; K76.0 Fatty (change of) liver, not elsewhere classified; M25.78 Osteophyte, vertebrae; M47.816 Spondylosis without myelopathy or radiculopathy, lumbar region; F17.210 Nicotine dependence, cigarettes, uncomplicated; K65.1 Peritoneal abscess
CPT/HCPCS: 36415; 82728; 85025; 86140

== ENCOUNTER 2024-01-09 15:33 | Outpatient (CLI) | payer OTHER, SELFPAY ==
--- NOTE | 2024-01-09 08:15 | DI.RAD_ITS ---
Exam(s) XR ANKLE LT 2V EXAM: XR ANKLE LT 2V CLINICAL HISTORY: F/U FRACTURE TECHNIQUE: 2D digital imaging was performed of the left ankle. Two images were obtained. AP and la teral views were obtained. COMPARISON: CR,XR XR ANKLE LT COMPLETE from 12/28/2023 FINDINGS: BONES: There has been no change in alignment of the nondisplaced calcaneal fracture. No bony destruc tive lesion is seen. There is an enthesophyte at the posterior calcaneus. JOINTS:The ankle mortise is normally aligned. SOFT TISSUE: Normal. IMPRESSION: Stable alignment of the nondisplaced calcaneal fracture. DATA REPOSITORY: RADIATION DOSE DELIVERED:
== END 2024-01-09 15:34 | disposition home or self-care (01) ==
LOC: DIORS 15:33
PROVIDERS: PCP Family Medicine; Visit Provider Student in an Organized Health Care Education/Training Program
DX: S92.015D Nondisplaced fracture of body of left calcaneus, subsequent encounter for fracture with routine healing (principal); X58.XXXD Exposure to other specified factors, subsequent encounter
CPT/HCPCS: 73600

== ENCOUNTER 2024-02-06 09:25 | Outpatient (CLI) | payer OTHER, SELFPAY ==
--- NOTE | 2024-02-06 09:29 | DI.RAD_ITS ---
Exam(s) XR ANKLE LT 2V EXAM: XR ANKLE LT 2V CLINICAL HISTORY: F/U FRACTURE. TECHNIQUE: 2D digital imaging was performed. COMPARISON: CR,XR XR ANKLE LT COMPLETE from 12/28/2023 CR XR ANKLE LT 2V from 01/09/2024 FINDINGS: Two views-AP and lateral No evidence of acute malleolar fracture nor widening the ankle mortise. Previously described fracture lines in the calcaneus are again evident and remain nondisplaced, seen on the lateral view. Degenerative changes are again noted in the ankle-tibiotalar joint. IMPRESSION: Stable appearance. As follow-up for the calcaneus fractures I would recommend dedicated calcaneus vi ews (which also includes a [place] axial view. DATA REPOSITORY: RADIATION DOSE DELIVERED:
== END 2024-02-06 09:26 | disposition home or self-care (01) ==
LOC: DIORS 09:26
PROVIDERS: PCP Family Medicine; Visit Provider Student in an Organized Health Care Education/Training Program
DX: S92.015D Nondisplaced fracture of body of left calcaneus, subsequent encounter for fracture with routine healing (principal); X58.XXXD Exposure to other specified factors, subsequent encounter
CPT/HCPCS: 73600

== ENCOUNTER 2024-04-02 15:22 | Outpatient (CLI) | payer OTHER, SELFPAY ==
--- NOTE | 2024-04-02 13:30 | DI.RAD_ITS ---
Exam(s) XR FOOT LT LIMITED EXAM: XR FOOT LT LIMITED INDICATION: F/U FRACTURE. COMPARISON: CR RIGHT FOOT COMPLETE from 07/15/2008 CR,XR XR ANKLE LT COMPLETE from 12/28/2023 CR XR ANKLE LT 2V from 01/09/2024 CR XR ANKLE LT 2V from 02/06/2024 TECHNIQUE: 2D digital imaging was performed. Single lateral view of the foot FINDINGS: Continued healing of the calcaneal fracture.. No new abnormalities. Spurring is again noted at the anterior distal tibia. DATA REPOSITORY: RADIATION DOSE DELIVERED:
== END 2024-04-02 15:23 | disposition home or self-care (01) ==
LOC: DIORS 15:24
PROVIDERS: Visit Provider Student in an Organized Health Care Education/Training Program
DX: S92.015D Nondisplaced fracture of body of left calcaneus, subsequent encounter for fracture with routine healing (principal); X58.XXXD Exposure to other specified factors, subsequent encounter
CPT/HCPCS: 73620